=== PATIENT | male | born 1950 | race Caucasian/White ===

== ENCOUNTER 2017-07-26 10:58 | Emergency (ER) | payer BC ==
--- NOTE | 2017-07-26 12:21 | ED ---
Lower Extremity - HPI Summary HPI Summary: Pt here w/ Rt LE pain and weakness x 1.5 weeks. Pain along lateral aspect of Rt thigh and wraps around to calf. Drove down to [facility] Saturday and did a lot of walking - this helped leg pain however the following day when he was putting on his shoes, he noticed he couldn't do this well as he had weakness with dorsiflexion. Also reports a sensation of feeling like he has "cotton wool shoved in his shoe", reduced sensation over 3/4/5 toes. Has had pain at night trying to get comfortable in this area so went to see PCP today who sent him here for MRI of lumbar spine (she tried to order outpt but hit too many roadblocks). Admits to h/o chronic intermittent back pain which typically only acts up when he sits for long periods - otherwise, no issues with back pain. Denies previous injury or dx of back issues. Denies saddle paresthesia, change in bowel/bladder habits. Denies fever, chills, N/V/D, chest pain, SOB, ab pain, pelvic pain, skin changes. He has not been tested for diabetes that he's aware but has no sx. He did lose about 30lbs in the past couple of years intentionally with healthier lifestyle. 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 - History of Current Complaint Chief Complaint: EDExtremityLower Stated Complaint: LEG PAIN Time Seen by Provider: 07/26/17 11:32 Hx Obtained From: Patient Pain Intensity: 7 - Allergies/Home Medications Allergies/Adverse Reactions: Allergies Allergy/AdvReac Type Severity Reaction Status Date / Time No Known Allergies Allergy Verified 10/04/15 13:03 Home Medications: Home Medications Albuterol HFA INHALER* [Ventolin HFA Inhaler*] 2 puff INH Q4H PRN 07/26/17 [ History Confirmed 07/26/17] Loratadine & Pseudoephedrine [Claritin-D 12 Hour] 1 tab PO DAILY 07/26/17 [ History Confirmed 07/26/17] Nutritional Supplements [Glucosamine Complex] 2 tab PO DAILY 07/26/17 [History Confirmed 07/26/17] PMH/Surg Hx/FS Hx/Imm Hx Previously Healthy: Yes Endocrine/Hematology History: Denies: Hx Anticoagulant Therapy, Hx Blood Disorders, Hx Thyroid Disease, Hx Anemia, Hx Unexplained Bleeding, Autoimmune Disease Musculoskeletal History: Reports: Hx Back Problems - intermittent low back pain - no meds or specialist Sensory History: Reports: Hx Contacts or Glasses Opthamlomology History: Reports: Hx Contacts or Glasses Neurological History: Denies: Hx CVA, Hx Dementia, Hx Headaches, Hx Migraine, Hx Nerve Disease, Hx Peripheral Neuropathy, Hx Seizures, Hx Spinal Cord Injury - Immunization History Date of Tetanus Vaccine: unknown Date of Influenza Vaccine: 06/2017 Immunizations Up to Date: Yes Infectious Disease History: No Infectious Disease History: Denies: Traveled Outside the [place] in Last 30 Days - Family History Known Family History: Positive: None - Social History Occupation: Retired Alcohol Use: Rare Hx Substance Use: No Substance Use Type: Reports: None Hx Tobacco Use: No Smoking Status (MU): Never Smoked Tobacco Review of Systems Constitutional: Negative Negative: Fever, Chills, Fatigue Eyes: Negative ENT: Negative Cardiovascular: Negative Negative: Chest Pain Respiratory: Negative Negative: Shortness Of Breath Gastrointestinal: Negative Negative: Abdominal Pain, Vomiting, Diarrhea, Nausea Genitourinary: Negative Negative: dysuria, frequency, flank pain, incontinence, urgency Positive: Decreased ROM Skin: Negative Positive: Weakness, Paresthesia Psychological: Normal All Other Systems Reviewed And Are Negative: Yes Physical Exam Triage Information Reviewed: Yes Vital Signs On Initial Exam: Initial Vitals Temp Pulse Resp BP Pulse Ox 98.5 F 72 18 147/96 99 07/26/17 11:02 07/26/17 11:02 07/26/17 11:02 07/26/17 11:02 07/26/17 11:02 Vital Signs Reviewed: Yes Appearance: Positive: Well-Appearing, No Pain Distress, Well-Nourished Skin: Positive: Warm, Dry - no erythema, no ecchymosis, no lesions over Rt LE Head/Face: Positive: Normal Head/Face Inspection Eyes: Positive: EOMI ENT: Positive: Hearing grossly normal Respiratory/Lung Sounds: Positive: Breath Sounds Present Cardiovascular: Positive: Pulses are Symmetrical in both Upper and Lower Extremities. Negative: Leg Edema Left, Leg Edema Right Abdomen Description: Positive: Nontender, Soft Bowel Sounds: Positive: Present Musculoskeletal: Negative: Strength/ROM Intact - Rt dorsiflexion is 3/5; Lt dorsiflexion 5/5 - all other movements of LE's are equal B/L; limited active ROM w/ toes and dorsiflexion on Rt LE, Pain @ - spinous pp and paraspinal mm are NTTP Neurological: Positive: Normal, Alert, Oriented to Person Place, Time, CN Intact II-III, Reflexes Intact - DTR of patellar tendon is 2+ equal B/L (NOTE: achilles reflex blunted B/L - equal). Negative: Sensory/Motor Intact - decreased sensation over Rt 3/4/5 phalanges on Rt foot; negative saddleparesthesia Psychiatric: Positive: Normal - José Coma Scale Coma Scale Total: 15 Diagnostics - Vital Signs Vital Signs Temp Pulse Resp BP Pulse Ox 07/26/17 11:02 98.5 F 72 18 147/96 99 - Laboratory Result Diagrams: 07/26/17 13:40 07/26/17 13:40 Lab Statement: Any lab studies that have been ordered have been reviewed, and results considered in the medical decision making process. Lower Extremity Course/Dx - Course Course Of Treatment: Pt presents w/ 1.5 week h/o lateral Right thigh and medial Rt calf pain which progressed to weakness of Right ankle w/ dorsiflexion and numbness of toes 2-3 days ago. Saw his PCP today who attempted to order an MRI of his lumbar spine but was unsuccessful. She sent him here for MRI. Discussed w/ Dr. Argueta - although unfortunate this could not be done outpt, lumbar MRI is most appropriate plan of action. If appropriate pending results, will order steroids to reduce sx and consult with neurosurg. MRI: Moderate to large right posterior lateral disc extrusion at L4-5 impinging upon. the right descending L5 nerve root in the lateral recess. DDD L2-S1. Facet arthropathy noted. Spoke w/ Dr. Anna who agreed w/ prednisone trial but will also see pt in ED and f/u w/ pt on Saturday - most likely needs surgical intervention. Danger s/ sx discussed w/ pt for earlier return to ED. Pt agrees w/ plan. - Diagnoses Provider Diagnoses: Lumbar radiculopathy Discharge - Discharge Plan Condition: Stable Disposition: HOME Prescriptions: predniSONE TAB* [Deltasone TAB*] 60 mg PO DAILY #15 tab Patient Education Materials: Lumbar Radiculopathy (ED) Referrals: Kelsi Jacobs MD [Primary Care Provider] - Additional Instructions: You appear to have a disc protruding and impinging a nerve innervating areas of the Right lower extremity. You have been prescribed a course of prednisone (a steroid) in an effort to reduce your swelling, pain and eventually weakness. It is important that you follow-up with Dr. Anna Saturday per discussion while here today. Contact information included here. It is also advised that you avoid movements that may exacerbate your pain (bending, rotating, etc). It is also advised that you avoid driving until cleared by Dr. Anna. In addition to your steroid, you may try non-steroidal anti-inflammatory such as ibuprofen 600mg every 6 hours with food. *If you develop worsening of weakness, pain, additional areas of numbness, change in bowel/bladder habits, return to ED
[2017-07-26 13:54] LABS: Hematocrit 43 % (42-52); Hemoglobin 14.8 g/dl (14.0-18.0); Mean Corpuscular HGB Conc 35 g/dl (31-36); Mean Corpuscular Hemoglobin 32 pg (27-31); Mean Corpuscular Volume 93 fL (80-94); Mean Platelet Volume 8 um3 (7.4-10.4); Red Blood Count 4.64 10^6/ul (4.0-5.4); Red Cell Distribution Width 14 % (10.5-15); White Blood Count 6.9 10^3/ul (3.5-10.8)
[2017-07-26 14:09] LABS: ALT 32 U/L (7-52); AST 34 U/L (13-39); Albumin 4.1 g/dL (3.2-5.2); Alkaline Phosphatase 74 U/L (34-104); Anion Gap 5 mmol/L (2-11); BUN/Creatinine Ratio 24.1 (8-20); Blood Urea Nitrogen 20 mg/dL (6-24); C Reactive Protein < 1.00 mg/L (< 5.00); CO2 Carbon Dioxide 27 mmol/L (22-32); Calcium 9.8 mg/dL (8.6-10.3); Chloride 105 mmol/L (101-111); EGFR African American 119.6 (>60); Globulin 2.8 g/dL (2-4); Glucose 101 mg/dL (70-100); Sodium 137 mmol/L (133-145); Total Protein 6.9 g/dL (6.4-8.9)
--- NOTE | 2017-07-26 15:15 | RAD ---
Indication: Lumbar radiculopathy. Image sequences: Sagittal T1, T2, STIR, axial T1 and T2-weighted images of the lumbar spine were obtained. The vertebral bodies appear normal in height. Normal bone marrow signal is noted. The vertebral bodies appear normal in height and alignment. Normal bone marrow signal is noted. At L2-L3 there is degenerative disc disease. No central or foraminal stenosis is noted. At L3-L4 spondylitic ridge flattens the thecal sac. No central or foraminal stenosis is noted. Mild facet arthropathy is noted. At L4-L5 spondylitic ridge with right paracentral disc extrusion indents the right descending L5 nerve root. No foraminal stenosis is noted. At L5-S1 degenerative disc disease is noted. IMPRESSION: Moderate to large right posterior lateral disc extrusion at L4-L5 impinging upon the right descending L5 nerve root in the lateral recess. Degenerative disc disease at L2-L3, L3-L4 and L5-S1. Facet arthropathy is noted.
[2017-07-26] MEDS ORDERED: predniSONE TAB* 20 MG PO ONE (16:45)
[2017-07-26 16:55] VITALS: BP 147/88
--- NOTE | 2017-07-26 21:22 | PN ---
Progress Note - Progress Note Date of Service: 07/26/17 Note: Patient seen and examined. Full consultation was dictated N: [id number]. Yuliet Burns MD
--- NOTE | 2017-07-27 05:42 | CONS ---
CONSULTATION REPORT: DATE OF CONSULT: 07/26/2017 HISTORY OF PRESENT ILLNESS: The patient is a very pleasant 66-year-old gentleman with a history of asthma, who was sent to the emergency room from the office of his primary physician. The patient complains of right foot drop for the 2 weeks. Requested to see the patient by the ED physician because of MRI findings consistent with right L4-L5 herniated nucleus pulposus. The patient reported that his symptoms started approximately 1- 1/2 weeks ago. He had experienced buckling of the right lower extremity with right lower extremity weakness in the dorsiflexion and decreased sensation in the right foot. The patient had difficulty putting on his right shoe. He reported that he has also difficulty with walking. He now reports that he has back pain radiating to the right lower extremity in the outer thigh area and knee and right foot. His main complaint is right lower extremity pain. He reports that he does have weakness on dorsiflexion of his right foot and he also feels decreased sensation in the right lower extremity. He denies urinary and GI incontinence. 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 PAST MEDICAL HISTORY: Asthma. PAST SURGICAL HISTORY: Negative. MEDICATIONS: The patient is on medications includin. Albuterol. 2. Loratadine. ALLERGIES: No known drug allergies. FAMILY HISTORY: Noncontributory. SOCIAL HISTORY: Tobacco negative. Alcohol is negative. Recreational drug use negative. PHYSICAL EXAM: The patient is not in acute distress. He ambulates slowly favoring his right lower extremity. He does have some difficulty standing on his right toes and cannot stand on the right heel. He is awake, alert, and oriented x3. His pupils are equal and reactive. Cranial nerves II through XII are grossly intact. Motor is grossly intact (4-5/5) in all extremities with the exception of the right foot dorsiflexion 3-4-/5 and EHL which is 3/5. The patient also has some mild weakness on the plantar flexion of his right foot which is 4-/5. Sensation is decreased on the right lower extremity at the L4 and L5 distribution.. He has no tenderness to palpation of the cervical, thoracic, or lumbar spine. He has full range of motion of the cervical spine. Deep tendon reflexes are +1 bilaterally except Achilles which is trace bilaterally. No clonus. No Babinski. Tolentino's negative. Straight leg raising test positive on the right at 30 degrees. MRI of the lumbar spine: HNP at the right L4-5 level with caudal extension. ASSESSMENT: The patient is a pleasant 66-year-old gentleman with a history of asthma with complaints of back pain radiating to right lower extremity, and weakness of the right lower extremity with right foot drop and MRI findings consistent with right L4-5 HNP. Plan: Based on his presentation and MRI findings, patient may benefit from a surgical intervention in the form of right L4-L5 lumbar diskectomy. Discussed in extend with patient non surgical and surgical options as well as expectations , limitations and possible complications of the procedure with complications including but not limited to bleeding, infection, risk of injury to adjacent structures, coma, paralysis, , anesthesia risks. Patient understands and would like to consider surgical intervention. At this point he would like to go home and return on Saturday to our office in order to schedule surgery. Full instructions were given to the patient. He understands that he should avoid strenuous activities and return to the ED if his condition worsens or if he develops signs or symptoms of cauda equina. Thank you for allowing us to participate in the care of this patient. Please do not hesitate to contact our office in case you have any further questions or concerns regarding the care of this patient. Yuliet Burns MD [id number]/[facility] #: [id number] MTDFito
== END 2017-07-26 16:51 | disposition home or self-care (01) ==
LOC: ED 10:58
DX: M54.16 Radiculopathy, lumbar region (principal); M51.37 Other intervertebral disc degeneration, lumbosacral region; J45.909 Unspecified asthma, uncomplicated
CPT/HCPCS: 36415; 72148; 80053; 83605; 85025; 85610; 86140; J7512

== ENCOUNTER 2017-08-01 05:53 | Observation (INO) | payer BC, MEDICARE ==
[~2017-08-01 05:53] MED LIST: Buffered Lidocaine 0.9% SYRIN* 5 ML/SYR SYRINGE INTRADERM ONE
[2017-08-01] MEDS ORDERED: Famotidine IV* 10 MG/ML 2 ML (20 mg) IV ONE (06:00)
[2017-08-01] MEDS ORDERED: Famotidine IV* 10 MG/ML 2 ML (20 mg) ONE (06:30)
[2017-08-01] MEDS ORDERED: ceFAZolin 2 GM PREMIX (*) 2 GM/50 ML BAG IVPB ONE (06:48)
[2017-08-01] MEDS ORDERED: Thrombin 5,000 UNITS* 1 APPLIC KIT - topical use - TOPICAL ONE (07:31)
[2017-08-01] MEDS ORDERED: Lidocaine 1% MPF wEPI 200,000* 30 ML SDV ONE (07:31)
[2017-08-01] MEDS ORDERED: Bacitracin IV* 50,000 UNITS INJ ONE (07:31)
[2017-08-01] MEDS ORDERED: Midazolam* 1 MG/ML 2 ML VIAL (2 MG) ONE (07:40)
[2017-08-01] MEDS ORDERED: fentaNYL* 50 MCG/ML 2 ML VIAL (100 MCG VIAL) ONE ×3 (07:40→08:44)
[2017-08-01] MEDS ORDERED: Rocuronium* 10 MG/ML VIAL ONE (07:41)
[2017-08-01] MEDS ORDERED: Lidocaine 2% PF * 5 ML VIAL ONE (07:44)
[2017-08-01] MEDS ORDERED: Propofol* 10 MG/ML 20 ML BTL IV PUSH ONE (07:44)
[2017-08-01] MEDS ORDERED: Ondansetron INJ* 2 MG/ML VIAL ONE (07:44)
[2017-08-01] MEDS ORDERED: Ketorolac INJ* 30 MG/ML 1 ML VIAL ONE (07:44)
[2017-08-01] MEDS ORDERED: Succinylcholine* 20 MG/ML 10 ML VIAL ONE (07:44)
[2017-08-01] MEDS ORDERED: DiMENhydriNATE IV* 50 MG/ML VIAL ONE (07:44)
[2017-08-01] MEDS ORDERED: Dexamethasone IV* 4 MG/ML 1 ML (4 MG) ONE (07:44)
--- NOTE | 2017-08-01 08:01 | PN ---
Progress Note - Progress Note Date of Service: 08/01/17 Note: No changes since seen in the hospital and in office. 66 yom right foot drop, MRI reveals right L4-5 HNP Plan: Patient was offered a right L4-5 lumbar discectomy. Risks and benefits were discussed again with patient and a friend of his, who is a colleague of his. Risks include, but not limited to bleeding, infection, risk of injury to adjacent structures, coma, paralysis, , need for additional procedures, anesthesia risks, spinal fluid leak, instability, stroke, blindness. Patient understands and wishes to proceed with surgical intervention. Informed consent was obtained. Patient and his friend understand that his condition may not improve and in fact may get worse and that he may need additional procedures in the future. Also they understand that operative plan may be modified according to intraoperative findings and conditions. Yuliet Burns MD
[2017-08-01] MEDS ORDERED: EPHEDrine (Pressors)* 50 MG/ML VIAL ONE (08:42)
[2017-08-01] MEDS ORDERED: Glycopyrrolate IV* 0.2 MG/ML 1 ML VIAL ONE (08:42)
[2017-08-01] MEDS ORDERED: oxyCODONE TAB* 5 MG TAB PO PRN (09:44)
[2017-08-01] MEDS ORDERED: DiMENhydriNATE IV* 50 MG/ML VIAL IV PUSH PRN (09:44)
[2017-08-01] MEDS ORDERED: HYDROmorphone INJ* 1 MG/ML CARPUJECT SYRINGE IV PRN (09:44)
[2017-08-01] MEDS ORDERED: Acetaminophen TAB* 325 MG PO PRN ×2 (09:44→10:28)
[2017-08-01] MEDS ORDERED: Ondansetron INJ* 2 MG/ML VIAL IV PRN (10:28)
[2017-08-01] MEDS ORDERED: HYDROcodone/ACETAMIN 5-325 MG* 1 TAB PO PRN ×2 (10:28→10:36)
[2017-08-01] MEDS ORDERED: Albuterol HFA INHALER* 8 gm MDI INH PRN (10:34)
--- NOTE | 2017-08-01 11:11 | RAD ---
INDICATION: L4-L5 discectomy COMPARISONS: MRI dated April 26, 2017 TECHNIQUE: Fluoroscopy was provided for a surgical procedure. Total fluoroscopy time is: 15.3 seconds FINDINGS: Spot images demonstrate a metallic probe in the L4-L5 intervertebral disc space, counting from L5 as the last lumbar type vertebral body. IMPRESSION: FLUOROSCOPY WAS PROVIDED FOR A SURGICAL PROCEDURE CPT II Codes: 6045F
[2017-08-01 12:07] LABS: Hematocrit 46 % (42-52); Hemoglobin 15.4 g/dl (14.0-18.0); Mean Corpuscular HGB Conc 34 g/dl (31-36); Mean Corpuscular Hemoglobin 32 pg (27-31); Mean Corpuscular Volume 93 fL (80-94); Mean Platelet Volume 8 um3 (7.4-10.4); Red Cell Distribution Width 14 % (10.5-15); White Blood Count 7.3 10^3/ul (3.5-10.8)
[2017-08-01 12:13] LABS: Add Diff/Slide Review? Slide Review Added; Comments Flag Yes
[2017-08-01 12:22] LABS: BUN/Creatinine Ratio 19.8 (8-20); Calcium 9.8 mg/dL (8.6-10.3); EGFR African American 90.2 (>60); EGFR Non-African American 70.1 (>60); Potassium 4.2 mmol/L (3.5-5.0)
--- NOTE | 2017-08-01 15:16 | CONS ---
DICTATION ENDS ABRUPTLY - FULLY REDICTATED CONSULTATION REPORT: DATE OF CONSULT: 08/01/17 He has a history of asthma. He has a recent history of an L4-L5 herniated disk with right-sided back pain and right foot weakness and he also had some difficulty walking. He was scheduled today for a right L4-L5 diskectomy DICTATION ENDS ABRUPTLY MARGY NADIYA, DAIRY SCIENCE TEACHER [id number]/[facility] #: [id number] ADINA
--- NOTE | 2017-08-01 19:43 | CONS ---
[facility] MEDICINE CONSULTATION REPORT: DATE OF CONSULT: 08/01/17 ATTENDING PHYSICIAN: Dr. Burns. CONSULTING PHYSICIAN: Dr. Quiroga (dictation provided by Margy Haley NP). REASON FOR CONSULT: Intraoperative and postoperative bradycardia. HISTORY OF PRESENT ILLNESS: Mr. Soni is a 66-year-old male with a past medical history of asthma and right-sided back pain, right leg weakness. He was admitted for a scheduled right L4-L5 discectomy today. We were called to consult due to an episode of bradycardia during and post surgery. Rhythm strips showed sinus bradycardia with the rate in the 40s. Upon interview, the patient denies any chest pain, shortness of breath. Denies dizziness, nausea, vomiting. He states that he has episodes for several years at night where he can feel his heartbeat, primary care doctor was aware. no work up was ever completed. He denies any past medical history of coronary artery disease. PAST MEDICAL HISTORY: 1. Asthma. 2. Right L4-L5 disk herniation. PAST SURGICAL HISTORY: Hernia repair in January of 2017. MEDICATIONS: 1. Multivitamin. 2. Albuterol inhaler, which he uses p.r.n. and reports that he rarely uses this. ALLERGIES: No known drug allergies. FAMILY HISTORY: Father had a history of prostate cancer. SOCIAL HISTORY: The patient does not smoke. Reports rare use of alcohol and denies any recreational drug use. Surrogate decision makes is [place] patient's son. REVIEW OF SYSTEMS: General: Denies fever, chills, or unintended weight loss. Cardiac: No chest pain, no edema. Respiratory: Denies shortness of breath, cough, or congestion. GI: Denies nausea, vomiting, diarrhea, or abdominal pain. Denies any hematuria or dysuria. Neuro: No focal weakness or sensory loss other than what was stated in the HPI. Eyes: No visual complaints. ENT: No dysphagia. Musculoskeletal: No complaints. Skin: No rashes or lesions. PHYSICAL EXAM: Vital Signs: Temperature 97.0, blood pressure was 150/85, heart rate is 76 and sinus rhythm, respirations are 14 and regular, O2 saturation is 100% on room air. General: Mr. Soni is lying on the stretcher. He appears to be in no acute distress. Neuro: He is alert and oriented x3. He is able to move all extremities. Extraocular movements are intact. Heart: S1, S2, regular rate and rhythm. There are no murmurs, rubs or gallops. Lungs are clear to auscultation bilaterally with no accessory muscle use. Abdomen is soft and nontender. Bowel sounds are positive x4. Extremities are without cyanosis or edema. Pedal pulses are +2 bilaterally. The skin is intact. LABORATORY DATA: Preoperatively, WBC 7.3, RBC 4.90, Hgb 15.4, hematocrit 46, platelet count is 187. Sodium is 139, potassium is 4.2, chloride 104, bicarb is 31, BUN is 21, creatinine 1.06, glucose was 116, calcium was 9.8, and mag was 2.0. Troponin was 0.00. IMPRESSION AND PLAN: Mr. Soni is a 66-year-old male with no significant past medical history, who presented to the hospital for a planned right L4-L5 diskectomy. In the immediate postoperative period, he has no complaints. He did have a few episodes of bradycardia during the surgery and in the postoperative period. Our recommendations are as follows: 1. Status post right L4-L5 discectomy: Management per Neurosurgery. 2. Bradycardia: We will monitor on telemetry for 8 hours if there are no further bradycardic events, the patient will be taken off the monitor. Cardiology consult was ordered by attending physician. If there are no further episodes of bradycardia we will sign off on this case. 3. Asthma: We will continue his albuterol inhaler as needed for shortness of breath. 4. DVT prophylaxis: Per Neurosurgery. 5. Activity: Per Neurosurgery. 6. FEN: Can be placed on a regular diet. 7. Code status: The patient is a full code. TIME SPENT: Approximately 45 minutes was spent in the consultation of this patient; more than half the time was spent with the patient at the bedside reviewing the patient's history thus far during hospitalization, performing physical exam, and reviewing my plan of care. This case has been reviewed with Dr. Quiroga my attending and she is in agreement with my plan. MARGY HALEY, ENERGY EFFICIENCY FINANCE MANAGER [id number]/[facility] #: [id number] [facility] CENTERFito
--- NOTE | 2017-08-01 23:39 | CONS ---
CC: Dr. Kelsi Jacobs; Dr. Lena Dean; Dr. Burns * CARDIOLOGY CONSULTATION: DATE OF CONSULT: 08/01/17 NEUROSURGEON: Dr. Burns. REASON FOR CONSULT: Bradycardia perioperatively. CHIEF COMPLAINT: The patient's chief complaint was back pain. HISTORY OF PRESENT ILLNESS: Mr. Soni is a 66-year-old gentleman admitted for elective L4-5 diske[address] today [address] Dr. Burns. He underwent anesthesia, was in the prone position and sedated awaiting initiation of surgery and his heart rate dropped progressively, OR notes reviewed. He was hemodynamically otherwise stable and they went ahead with the surgery, which was unremarkable. Then, postoperatively, with monitoring, he had what Dr. Dean describes as some pauses and hence the Cardiology consult was called. At the peak time, I saw the patient. He was postoperative on the floor and overall feeling well. He says he has never had a syncopal or near syncopal event. He does state that he has had many many years of intermittent palpitations typically at rest. These palpitations are not associated with other symptoms such as lightheadedness, chest discomfort, nausea, feeling poorly in any way. PAST MEDICAL HISTORY: 1. The patient has a past medical history of L4-5 disk herniation, status post surgery today. 2. Asthma. PAST SURGICAL HISTORY: Hernia repair in January of 2017, the patient denied any complications with this procedure. MEDICATIONS: Outpatient medications included: 1. Albuterol inhaler. 2. MultiVites. ALLERGIES: No known drug allergies. FAMILY HISTORY: Significant had a pacemaker. Both parents lived until the age of 92. 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 He is physically quite active on a regular basis until his back issues. No history of recreational drug use, occasionally a glass of wine socially. He does not smoke. REVIEW OF SYSTEMS: A 14-point review of systems was performed. No recent fevers, chills, sweats. No recent travel. No chest pain, pressure, heaviness. No orthopnea. No PND. Does not use eye drops. He has never been on weight lowering agents that he is aware of. Denies use of jlxj-zcb-jptauej medication. I could not elicit a history of problems of vagally mediated or increased vagal tone such as trouble urinating, , constipation, and all other 14-point review of systems was unremarkable other than that mentioned in history of present illness with palpitations for many years. PHYSICAL EXAM: The patient is 5 feet 8 inches, weighs 184 pounds with BMI of 28. Vital signs at the time I saw him, blood pressure 144/93, pulse was 88, respiratory rate 16, oxygen saturation on room air 98%, and he is afebrile. General Appearance: Somewhat older gentleman, seated, in no acute distress. Psychologically, cooperative, voiced that he would rather be home. Neurologically, awake, alert, oriented to person, place, and time. Cranial nerves II through XII intact, grossly normal sensory and motor function in the upper and lower extremities. Gait not evaluated but moved well in the bed. HEENT: Pupils equal and round. Mucous membranes moist. Neck without appreciable increase in JVP and no thyromegaly appreciated. Breath sounds were clear in all soto. No wheezes, rales, or rhonchi. Coronary: S1, S2, regular without murmurs or rubs. Abdomen: Active bowel sounds, nontender. Lower extremities were symmetrical and were free of edema and warm. DIAGNOSTIC STUDIES/LAB DATA: Chart reviewed and at 8:33 this morning, the patient went from normal sinus rhythm 75 beats a minute abruptly to an ectopic or junctional bradycardia in the 40s and alternated these rhythms. In the PACU , he showed sinus rhythm at 80 beats a minute with occasional PACs and a compensatory pause following his PACs, sometimes this was more pronounced than others. Lab strips from telemetry around 1 o'clock showed sinus rhythm with sinus arrhythmia and with varying pulses from sinus rhythm, 80 beats a minute, to sinus bradycardia versus ectopic bradycardia in the 40s and back to sinus rhythm, 80 to 85 beats a minute. There were multiple similar episodes. The patient's 12-lead ECG done at 11:18 today postoperatively shows normal sinus rhythm, 70 beats a minute, QRS axis -15 with normal AV and IV conduction times. ST segments are unremarkable, somewhat prominent R wave. White count 7.3, hemoglobin 15.4, platelets 187. Sodium 139, potassium 4.2, chloride 104, bicarb 31, glucose 116, BUN 4, creatinine 1.06. Troponin 0.00. Magnesium 2.0. IMPRESSION AND PLAN: In summary, Vasile Soni is a 66-year-old gentleman, who had intermittent bradycardia intraoperatively and postoperatively. I think he has a combination of some sick sinus syndrome and blocked premature atrial contractions as the etiology as he has never had any syncopal or near-syncopal events and a long- standing history of palpitations that has been unchanged. I think this can be pursued as an outpatient. He very much appeared to want to be discharged. I communicated to the patient that I did not feel there was an indication for a pacemaker at this point, but this could be an early sick sinus syndrome and that I would recommend some outpatient monitoring, perhaps an event monitor. I did not appreciate that patient had a history to suggest sleep apnea but this can sometimes lead to some sinus arrhythmia as can dehydration but there is no evidence that patient was dehydrated intraoperatively or postoperatively. Thank you for allowing me to assist in this nice gentleman's care. [id number]/[facility] #: [id number] ADINA
--- NOTE | 2017-08-02 07:23 | PN ---
Progress Note - Progress Note Date of Service: 08/02/17 SOAP: Subjective: []No events ON. Tolerates po well. Ambulates, Voids. No complains of pain. Did not take pain medications. RLE weakness and numbness improved compare with preop. Objective: [] VVS Afebrile Wound s,c,d AAOx3 KRISTIE, Face symmetric. HOWELL 4-5/5 Rt foot DF, EHL 3-4-/5 Sensory grossly intact to light touch, except rt foot, which is improved compared to preop. Assessment: []66 yom POD#1 Rt L4-5 LMD Plan: []Appreciate IM, Cardiology consultation. Patient is doing very well, wants to go home. Encourage ambulation. DC home if ok with IM, Cardiology. Yuliet Burns MD
[2017-08-02 08:30] VITALS: BP 117/67
--- NOTE | 2017-08-02 10:17 | OP ---
DATE OF OPERATION: 08/01/17 - ROOM #341 DATE OF : 52 SURGEON: Doreen Burns MD INSIDE TECHNICAL SALES REPRESENTATIVE: AMRITA Rehman ANESTHESIOLOGIST: Lena Dean MD ANESTHESIA: General. PRE-OP DIAGNOSIS: Right L4-5 herniated nucleus pulposus. POST-OP DIAGNOSIS: Right L4-5 herniated nucleus pulposus. OPERATIVE PROCEDURE: The patient underwent right L4-5 diskectomy. ESTIMATED BLOOD LOSS: 50 cc. COMPLICATIONS: None. SUMMARY: The patient is a very pleasant 66-year-old gentleman with complaints of back pain radiating to the right lower extremity with weakness of right lower extremity for approximately 2 weeks and right footdrop with MRI findings consistent with a right L4-5 herniated nucleus pulposus. The patient was offered the option of surgical intervention in the form of right L4-5 diskectomy. After all nonsurgical and surgical options, expectations, limitations, and possible complications of the procedure had been explained in detail to the patient and friend of his with complications to include, but not limited to bleeding, infection, risk of damage to adjacent structures, paralysis , , need for additional procedures, anesthesia risks, stroke, blindness, cancer, instability, spinal fluid leak, need for additional procedures, the patient was agreeable to proceed with surgery. Informed consent was obtained. The patient and his friend understood that his condition may not improve and in fact may get worse after the surgery and that he may need some additional procedure in the future. Furthermore, he understood that operative plan may be modified according to intraoperative findings and conditions. DESCRIPTION OF PROCEDURE: The patient was brought to the operating room and was placed under general anesthesia by the anesthesia team. He was carefully positioned prone on the Peterson frame on the Gonsalo table and all bony prominences were meticulously padded. His skin was prepped and draped in the standard fashion. After appropriate surgical pause and patient identification, the appropriate level was identified with intraoperative fluoroscopic imaging. A small incision to the right of the L4-5 disk space was marked on the skin and the skin was infiltrated with local anesthetic. A #10 surgical blade was used to incise the skin and the incision was carried down with Bovie cautery. Dorsal fascia was divided and over a series of tubular dilators, the tubular METRx rectractor system was introduced. Intraoperative fluoroscopic images confirmed optimal placement of the retractor. Operative microscope was brought into the field and high speed drill was used to perform a small laminotomy at the right L4 jen-lamina, extended slightly towards the midline. The laminotomy was completed with the use of Kerrison punches and after removal of the ligamentum flavum, dura was slightly identified. The L5 nerve root was identified as well as the L4-5 disk space and after gentle retraction of the nerve root, a complete fragmentectomy was performed at the right L4-5 level. Multiple disk fragments were identified and were carefully removed. Specimen was sent for pathology examination. Then, attention was brought to perform a diskectomy at that level. with a #15 surgical blade, then using the pituitary rongeur to remove the loose disk fragments from the disk space. Intraoperative fluoroscopic imaging confirmed the appropriate surgical level and after confirmation of meticulous hemostasis and copious irrigation, the dura was found to be free of any pressure phenomenon. Laminotomy was performed also at the same level with Kerrison punches. At the end of the procedure, the dura and the nerve root was found to be free of any pressure phenomena. Then, the tubular retractor was gently removed, meticulous hemostasis was confirmed, and after copious irrigation, the would closed by layers with 0 interrupted Vicryl sutures to reapproximate the dorsal fascia and 2-0 interrupted Vicryl sutures to reapproximate the subcutaneous tissue. The skin was approximated with Steri- Strips and covered with sterile dressings. At the end of the procedure, all counts were reported to be correct. The patient remained hemodynamically stable throughout the case. He was then carefully returned supine, was extubated and was transferred to Recovery in excellent condition. [id number]/[facility] #: [id number] [facility]ENTER[facility]
--- NOTE | 2017-08-03 01:10 | DS ---
DISCHARGE SUMMARY: DATE OF ADMISSION: 08/01/17 DATE OF DISCHARGE: 08/02/17 ATTENDING PHYSICIAN: Doreen Burns MD * (DICTATED BY AMRITA SHOEMAKER) DISCHARGE DIAGNOSES: 1. Herniated nucleus pulposus, L4-5 on the right. 2. Bradycardia. 3. Asthma. SPECIAL PROCEDURE: Lumbar diskectomy, L4-5 on the right. HOSPITAL COURSE: This 66-year-old male was seen in the office after a visit at the [facility] Emergency Department complaining of right lower extremity pain. MRI of the lumbar spine was consistent with physical exam findings and showed a herniated disk at L4-5 on the right. After being seen in the office on and discussion of treatment options, the patient wished to proceed with elective surgery. On the day of admission, he was taken to surgery where under general anesthesia, a lumbar diskectomy at L4-5 on the right operation was carried out. He experienced episodes of bradycardia and arrhythmia intraoperatively and postoperatively, a Cardiology consult was obtained. Postoperatively, he was feeling well and the right lower extremity symptoms have improved. He was eating, drinking and voiding without difficulty. He was ambulating independently. The Cardiology consult by Dr. Fernandez indicated that he likely has a combination of sick sinus syndrome and premature atrial contractions. She recommended that this be followed up and worked up as an outpatient. On the first postoperative day, he is discharged home to the care of his family. DISCHARGE INSTRUCTIONS: Activity level and wound care were discussed with the patient. FOLLOWUP: He will be seen in office next week for a followup. He will also follow up with Dr. Fernandez for his recently diagnosed cardiac condition. DISCHARGE MEDICATION: [place] 5/325 mg 1 to 2 tabs by mouth every 4 to 6 hours as needed for pain. AMRITA SHOEMAKER [id number]/[facility] #: [id number] [facility]ITAL[facility]ito
== END 2017-08-02 10:30 | disposition home or self-care (01) ==
LOC: OR 05:53 → SSU 12:30
PROVIDERS: ADMIT Neurological Surgery; ATTEND Neurological Surgery
PROC: 01NB0ZZ Release Lumbar Nerve, Open Approach (ICD-10-PCS; 2017-08-01)
PROC: 0SB20ZZ Excision of Lumbar Vertebral Disc, Open Approach (ICD-10-PCS; principal; 2017-08-01 07:45)
DX: M51.16 Intervertebral disc disorders with radiculopathy, lumbar region (principal); J45.909 Unspecified asthma, uncomplicated; R00.1 Bradycardia, unspecified
CPT/HCPCS: 36415; 76000; 80048; 83735; 84484; 85025; 93005; A9270-GY; G0378; J0330; J0690; J1100; J1240; J1885; J2001; J2250; J2405; J2704; J3010

== ENCOUNTER 2019-03-20 16:24 | Emergency (ER) | payer MEDICARE ==
--- OUTSIDE RECORDS SUMMARY | 2019-03-20 16:35 | XMS REPORT | Continuity of Care Document ---
:1950 External Reference #:[id number] Author Name Inocencia Clay Care Team Providers Name Role Phone Kelsi Jacobs MD Primary Care Physician Unavailable Payers Date Identification Numbers Payment Provider Subscriber Policy Number: [id number] Medicare Blue Ppo Vasile Soni PayID: [id number] [address] [address] [place] [address] Problems Active Problems Provider Date Displacement of lumbar intervertebral disc Doreen Burns MD Onset: without myelopathy Family History Date Family Member(s) Observation Comments Father due to Pneumonia () - age 93 Mother due to Heart Disease () - heart failure age 93 Siblings 1 Social History Type Date Description Comments Sex Unknown 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 ETOH Use Rarely consumes alcohol Tobacco Use Start: Unknown Patient has never smoked Smoking Status Reviewed: 03/20/19 Patient has never smoked Allergies, Adverse Reactions, Alerts Description No Known Drug Allergies Medications Active Medications SIG Qnty Indications Ordering Provider Date Albuterol Sulfate 1-2 puffs every 4 Unknown 2mg hours as needed Tablets sob Aleve 1-2 by mouth Unknown 220mg Capsules twice a day as needed Acetaminophen 2 tablets by Unknown 325mg Tablets mouth every 6 hours as needed for pain/fever Clobetasol Propionate prn Unknown 0.05% Ointment Flonase Sensimist 1 squirt each Unknown nostril once a 27.5mcg/Boyce day Suspension History Medications [place] take 1-2 tabs by 30tabs Doreen Burns, 08/02/2017 - 5-325mg mouth every 4-6 MD 09/17/2017 Tablets hours as needed for pain. Claritin-D 12 Hour once a day spring/0000 - /summer08/07/2017 5-120mg Tablets ER 12HR Vital Signs Date Vital Result Comment 03/20/2019 2:04pm Height 68 inches 5'8" Weight 190.00 lb Heart Rate 80 /min BP Systolic Sitting 144 mmHg BP Diastolic Sitting 82 mmHg BMI (Body Mass Index) 28.9 kg/m2 02/11/2019 10:02am Height 68 inches 5'8" Weight 190.00 lb BP Systolic Sitting 122 mmHg BP Diastolic Sitting 80 mmHg Pain Level 3 BMI (Body Mass Index) 28.9 kg/m2 11/10/2018 10:06am Height 68 inches 5'8" Weight 190.75 lb Heart Rate 54 /min BP Systolic Sitting 110 mmHg large adult cuff left arm BP Diastolic Sitting 82 mmHg large adult cuff left arm O2 % BldC Oximetry 97 % at rest on room air BMI (Body Mass Index) 29.0 kg/m2 09/19/2018 3:03pm Height 68 inches 5'8" Weight 180.00 lb BP Systolic Sitting 120 mmHg BP Diastolic Sitting 70 mmHg Pain Level 4 BMI (Body Mass Index) 27.4 kg/m2 07/08/2018 9:56am Height 68 inches 5'8" Weight 180.00 lb BP Systolic Sitting 140 mmHg BP Diastolic Sitting 70 mmHg Pain Level 2 BMI (Body Mass Index) 27.4 kg/m2 11/29/2017 8:50am Height 68 inches 5'8" Weight 180.00 lb BP Systolic Sitting 122 mmHg BP Diastolic Sitting 60 mmHg Pain Level 1 BMI (Body Mass Index) 27.4 kg/m2 10/01/2017 9:38am Height 68 inches 5'8" Weight 180.00 lb Heart Rate 82 /min BP Systolic Sitting 118 mmHg BP Diastolic Sitting 78 mmHg Pain Level 0 BMI (Body Mass Index) 27.4 kg/m2 09/17/2017 9:45am Height 68 inches 5'8" Weight 180.00 lb Heart Rate 91 /min BP Systolic Sitting 126 mmHg BP Diastolic Sitting 80 mmHg Pain Level 2 BMI (Body Mass Index) 27.4 kg/m2 09/10/2017 10:48am Height 68 inches 5'8" Weight 180.00 lb Heart Rate 77 /min BP Systolic Sitting 127 mmHg BP Diastolic Sitting 74 mmHg Pain Level 3 BMI (Body Mass Index) 27.4 kg/m2 08/07/2017 1:34pm Height 68 inches 5'8" Weight 180.00 lb Heart Rate 94 /min BP Systolic Sitting 124 mmHg BP Diastolic Sitting 74 mmHg Pain Level 3 BMI (Body Mass Index) 27.4 kg/m2 07/29/2017 12:24pm Height 68 inches 5'8" Weight 183.00 lb Heart Rate 78 /min BP Systolic Sitting 128 mmHg BP Diastolic Sitting 78 mmHg Pain Level 3 BMI (Body Mass Index) 27.8 kg/m2 Results Test Date Facility Test Result H/L Range Note CBC Auto Diff 08/01/2017 [facility] White Blood 7.3 10^3/uL N 3.5-10.[address] [place] [address] [phone] Red Blood Count 4.90 10^6/uL N 4.0-5.4 Hemoglobin 15.4 g/dL N 14.0-18.0 Hematocrit 46 % N 42-52 Mean Corpuscular Volume 93 fL N 80-94 Mean Corpuscular Hemoglobin 32 pg High 27-31 Mean Corpuscular HGB Conc 34 g/dL N 31-36 Red Cell Distribution Width 14 % N 10.5-15 Platelet Count 187 10^3/uL N 150-450 Mean Platelet Volume 8 um3 N 7.4-10.4 Abs Neutrophils 5.6 10^3/uL N 1.5-7.7 Abs Lymphocytes 1.3 10^3/uL N 1.0-4.8 Abs Monocytes 0.2 10^3/uL N 0-0.8 Abs Eosinophils 0.1 10^3/uL N 0-0.6 Abs Basophils 0 10^3/uL N 0-0.2 Abs Nucleated RBC 0 10^3/uL Granulocyte % 77.3 % N 38-83 Lymphocyte % 18.2 % Low 25-47 Monocyte % 2.6 % N 1-9 Eosinophil % 1.6 % N 0-6 Basophil % 0.3 % N 0-2 Nucleated Red Blood Cells % 0 Basic Metabolic Panel 08/01/2017 [facility] Sodium 139 mmol/L N 133-[address] [place] [address] [phone] Potassium 4.2 mmol/L N 3.5-5.0 Chloride 104 mmol/L N 101-111 Co2 Carbon Dioxide 31 mmol/L N 22-32 Anion Gap 4 mmol/L N 2-11 Glucose 116 mg/dL High 70-100 Blood Urea Nitrogen 21 mg/dL N 6-24 Creatinine 1.06 mg/dL N 0.67-1.17 BUN/Creatinine Ratio 19.8 N 8-20 Calcium 9.8 mg/dL N 8.6-10.3 Egfr Non- 70.1 >60 Egfr 90.2 >60 1 Laboratory test 08/01/2017 [facility] Magnesium 2.0 mg/dL N 1.9-2.7 finding [address] [place] [address] [phone] Troponin-I (TnI) 0.00 ng/mL <0.04 Inr/Protime 07/31/2017 [facility] Inr 1.00 N 0.77-1.02 2, 3 [address] [place] [address] [phone] CBC No Diff 07/31/2017 [facility] White Blood 10.4 N 3.5-10.[address] [place] [address] Count 10^3/[place] [address] [phone] Red Blood Count 4.42 10^6/uL N 4.0-5.4 Hemoglobin 13.8 g/dL Low 14.0-18.0 Hematocrit 41 % Low 42-52 Mean Corpuscular Volume 93 fL N 80-94 Mean Corpuscular Hemoglobin 31 pg N 27-31 Mean Corpuscular HGB Conc 34 g/dL N 31-36 Red Cell Distribution Width 14 % N 10.5-15 Platelet Count 202 10^3/uL N 150-450 Mean Platelet Volume 9 um3 N 7.4-10.4 Type & Screen 07/31/2017 [facility] Patient Blood Type O Positive [address] [place] [address] [phone] Antibody Screen NEGATIVE Basic Metabolic Panel 07/31/2017 [facility] Sodium 141 mmol/L N 133-[address] [place] [address] [phone] Potassium 4.0 mmol/L N 3.5-5.0 Chloride 104 mmol/L N 101-111 Co2 Carbon Dioxide 33 mmol/L High 22-32 Anion Gap 4 mmol/L N 2-11 Glucose 82 mg/dL N 70-100 Blood Urea Nitrogen 23 mg/dL N 6-24 Creatinine 1.00 mg/dL N 0.67-1.17 BUN/Creatinine Ratio 23.0 High 8-20 Calcium 9.3 mg/dL N 8.6-10.3 Egfr Non- 75.0 >60 Egfr 96.4 >60 4 Laboratory test 07/31/2017 [facility] TSH (Thyroid 0.61 mcIU/mL N 0.34-5.60 [address] [place]) [place] [address] [phone] 1 Because ethnic data is not always readily available, this report includes an eGFR for both -Americans and non- Americans. The National Kidney Disease Education Program (NKDEP) does not endorse the use of the MDRD equation for patients that are not between the ages of 18 and 70, are , have extremes of body size, muscle mass, or nutritional status, or are non- or non-. According to the National Kidney Foundation, irrespective of diagnosis, the stage of the disease is based on the level of kidney function: Stage Description GFR(mL/min/1.73 m(2)) 1 Kidney damage with normal or decreased GFR 90 2 Kidney damage with mild decrease in GFR 60-89 3 Moderate decrease in GFR 30-59 4 Severe decrease in GFR 15-29 5 Kidney failure <15 (or dialysis) 2 AA 08/01 3 Please note the change in INR reference range effective 17. 4 Because ethnic data is not always readily available, this report includes an eGFR for both -Americans and non- Americans. The National Kidney Disease Education Program (NKDEP) does not endorse the use of the MDRD equation for patients that are not between the ages of 18 and 70, are , have extremes of body size, muscle mass, or nutritional status, or are non- or non-. According to the National Kidney Foundation, irrespective of diagnosis, the stage of the disease is based on the level of kidney function: Stage Description GFR(mL/min/1.73 m(2)) 1 Kidney damage with normal or decreased GFR 90 2 Kidney damage with mild decrease in GFR 60-89 3 Moderate decrease in GFR 30-59 4 Severe decrease in GFR 15-29 5 Kidney failure <15 (or dialysis) 5 AA 08/01 Procedures Date Code Description Status 08/01/2017 79415 EKG, Interpretation Only Completed 08/01/2017 69926 Use Of Operating Microscope Completed 08/01/2017 15345 Use Of Operating Microscope Completed 08/01/2017 85790 Laminotomy W/Decomp NRV RT,One Interspace,Lumbar Completed 08/01/2017 50111 Laminotomy W/Decomp NRV RT,One Interspace,Lumbar Completed Encounters Type Date Location Provider Dx Diagnosis Office Visit 11/10/2018 [facility] M51.26 Other intervertebral 10:00a Services Of Anila Burns MD disc displacement, lumbar region Office Visit 09/19/2018 [facility] M51.26 Other intervertebral 3:00p Services Of Anila Burns MD disc displacement, lumbar region Office Visit 07/08/2018 [facility] Z48.89 Encounter for other 10:00a Services Of Anila Burns MD specified surgical aftercare Office Visit 11/29/2017 [facility] Z48.89 Encounter for other 9:00a Services Of Anila Burns MD specified surgical aftercare Office Visit 08/01/2017 [facility] J45.909 Unspecified asthma, 9:44a Assoc,keiko Haley, RESEARCH SUBJECT uncomplicated Hospitalists R00.1 Bradycardia, unspecified Z98.890 Other specified postprocedural states Z87.39 Personal history of diseases of the ms sys and conn tiss Office Visit 08/01/2017 3:45p [facility] Oriana Fernandez, R00.1 Bradycardia, Of Anila Pena unspecified R00.2 Palpitations Office 07/29/2017 [facility] M51.26 Other Visit 12:30p Services Of Anila Burns MD intervertebral disc displacement, lumbar region M51.16 Intervertebral disc disorders w radiculopathy, lumbar region Office 07/26/2017 [facility] M51.26 Other Visit 7:00a Services Of Anila Burns MD intervertebral disc displacement, lumbar region M51.16 Intervertebral disc disorders w radiculopathy, lumbar region Plan of Treatment Future Appointment(s):03/26/2019 4:00 pm - Doreen Burns MD at [facility]03/20/2019 - Jann Pablo, PAM51.26 Other intervertebral disc displacement, lumbar regionReferral:Ted Hood MD, Interventional Pain JjbvyD05.16 Intervertebral disc disorders w radiculopathy, lumbar tgkcxbI39.12 Radiculopathy, cervical regionNew Xrays:MRI Cervical Spine Wo, Ordered: 03/20/19MRI Upper Extremity Right Wo, Ordered: 03/20/19New Orders: EMG w/Nerve Conduct Study, Upper, Ordered: 03/20/19Referral:Vasile Reddy MD , Surgery,Hand OrthopedicFollow up:RV in one weekG45.9 Transient cerebral ischemic attack, unspecifiedNew Xrays:MRI Brain W/O, Ordered: 03/20/19
[2019-03-20 17:24] LABS: ABS Eosinophils 0.2 10^3/ul (0-0.6); ABS Lymphocytes 1.8 10^3/ul (1.0-4.8); ABS Monocytes 0.9 10^3/ul (0-0.8); ABS Neutrophils 5.9 10^3/ul (1.5-7.7); Hematocrit 47 % (42-52); Lymphocyte % 20.9 %; Mean Corpuscular HGB Conc 34 g/dL (31-36); Mean Corpuscular Hemoglobin 32 pg (27-31); Mean Corpuscular Volume 92 fL (80-94); Mean Platelet Volume 7.8 fL (7.4-10.4); Platelet Count 247 10^3/uL (150-450); Red Blood Count 5.07 10^6 /uL (4.18-5.48); Red Cell Distribution Width 14 % (10-15); White Blood Count 8.8 10^3/uL (3.5-10.8)
[2019-03-20 17:38] LABS: ALT 22 U/L (7-52); AST 23 U/L (13-39); Albumin 4.6 g/dL (3.2-5.2); Albumin/Globulin Ratio 1.4 (1-3); Alkaline Phosphatase 73 U/L (34-104); Anion Gap 8 mmol/L (2-11); BUN/Creatinine Ratio 22.7 (8-20); Blood Urea Nitrogen 20 mg/dL (6-24); CO2 Carbon Dioxide 28 mmol/L (22-32); Calcium 10.7 mg/dL (8.6-10.3); Chloride 102 mmol/L (101-111); EGFR African American 104.5 (>60); EGFR Non-African American 86.4 (>60); Globulin 3.3 g/dL (2-4); Glucose 114 mg/dL (70-100); Potassium 4.1 mmol/L (3.5-5.0); Sodium 138 mmol/L (135-145); Total Protein 7.9 g/dL (6.4-8.9)
--- NOTE | 2019-03-20 18:05 | ED ---
Back Pain - HPI Summary HPI Summary: The patient is a 68 y/o M presenting to [facility] with a chief complaint of back, RUE, and BLE pain starting weeks ago with worsening about a week ago. He reports that he had back surgery 18 months [address] performed by Dr. Burns because the patient experiencing BLE pain and numbness in the right foot. Since the surgery, his pain has been improved until he recently started having RUE and BLE pain with numbness in the right hand at the fifth finger and palm. He additionally c/o back pain and numbness in the toes on the right foot. The symptoms are aggravated by sitting or lying for long. He notes that he has difficulty sleeping secondary to the pain. His pain is currently rated 3/10 in severity. He denies any urinary symptoms and weakness or other neurological symptoms. Hx of asthma, arthritis. Nonsmoker, rare EtOH, no substance use. Dr. Burns wanted the patient to come to the ED. - History of Current Complaint Chief Complaint: EDBackInjuryPain Stated Complaint: REEVALUATION OF MRI, SENT BY DR BURNS PER PT Time Seen by Provider: 03/20/19 17:35 Hx Obtained From: Patient Onset/Duration: Gradual Onset, Lasting Weeks, Still Present, Worse Since - last week Onset/Duration: Started Weeks Ago, Still Present Timing: Lasting Weeks Back Pain Location: Is Discrete @ - RUE, BLE Severity Initially: Mild Severity Currently: Moderate Pain Intensity: 3 Pain Scale Used: 0-10 Numeric Character: Aching Aggravating Symptom(s): Other - lying or sitting for long periods of time Alleviating Symptom(s): Nothing Associated Signs And Symptoms: Positive: Numbness - in right hand at pinky and palm and toes on right foot, Other - POSITIVE: RUE pain, BLE pain; NEGATIVE: urinary symptoms. Negative: Weakness - Allergies/Home Medications Allergies/Adverse Reactions: Allergies Allergy/AdvReac Type Severity Reaction Status Date / Time No Known Allergies Allergy Verified 08/01/17 06:18 PMH/Surg Hx/FS Hx/Imm Hx Endocrine/Hematology History: Denies: Hx Anticoagulant Therapy, Hx Blood Disorders, Hx Thyroid Disease, Hx Anemia, Hx Unexplained Bleeding Cardiovascular History: Denies: Hx Pacemaker/ICD Respiratory History: Reports: Hx Asthma - USES INHALER Musculoskeletal History: Reports: Hx Arthritis, Hx Back Problems - intermittent low back pain - no meds or specialist Sensory History: Reports: Hx Cataracts - IN LEFT EYE , SURGERY NOT REQUIRED, Hx Contacts or Glasses - GLASSES Denies: Hx Hearing Aid Opthamlomology History: Reports: Hx Cataracts - IN LEFT EYE , SURGERY NOT REQUIRED, Hx Contacts or Glasses - GLASSES Neurological History: Denies: Hx CVA, Hx Dementia, Hx Headaches, Hx Migraine, Hx Nerve Disease, Hx Peripheral Neuropathy, Hx Seizures, Hx Spinal Cord Injury Psychiatric History: Denies: Hx Panic Disorder - Surgical History Surgery Procedure, Year, and Place: HERNIA REPAIR 01/2017 [facility] Hx Anesthesia Reactions: No - Immunization History Date of Tetanus Vaccine: unknown Date of Influenza Vaccine: 06/2017 Infectious Disease History: No Infectious Disease History: Denies: Traveled Outside the [place] in Last 30 Days - Family History Known Family History: Negative: Cardiac Disease, Hypertension, Diabetes - Social History Alcohol Use: Rare Hx Substance Use: No Substance Use Type: Reports: None Hx Tobacco Use: No Smoking Status (MU): Never Smoked Tobacco Have You Smoked in the Last Year: No Review of Systems Positive: Other - difficulty sleeping secondary to pain Positive: no symptoms reported Positive: Myalgia - RUE and BLE pain, back pain Positive: Numbness - in right hand at fifth finger and palm, in toes on the right foot. Negative: Weakness All Other Systems Reviewed And Are Negative: Yes Physical Exam - Summary Physical Exam Summary: Appearance: Well appearing, no pain distress Skin: warm, dry, reflects adequate perfusion Head/face: normal Eyes: EOMI, KRISTIE ENT: normal Neck: supple, non-tender Respiratory: CTA, breath sounds present Cardiovascular: RRR, pulses symmetrical Abdomen: non-tender, soft Musculoskeletal: normal, strength/ROM intact Neuro: normal, sensory motor intact, A&Ox3, GCS: 15 Triage Information Reviewed: Yes Vital Signs On Initial Exam: Initial Vitals Temp Pulse Resp BP Pulse Ox 98.7 F 90 24 180/111 96 03/20/19 16:27 03/20/19 16:27 03/20/19 16:27 03/20/19 16:27 03/20/19 16:27 Vital Signs Reviewed: Yes - José Coma Scale Best Eye Response: 4 - Spontaneous Best Motor Response: 6 - Obeys Commands Best Verbal Response: 5 - Oriented Coma Scale Total: 15 Diagnostics - Vital Signs Vital Signs Temp Pulse Resp BP Pulse Ox 03/20/19 16:27 98.7 F 90 24 180/111 96 - Laboratory Lab Results: Lab Results 03/20/19 03/20/19 03/20/19 Range/Units 17:14 17:14 17:14 WBC 8.8 (3.5-10.8) 10^3/uL RBC 5.07 (4.18-5.48) 10^6 /uL Hgb 16.0 (14.0-18.0) g/dL Hct 47 (42-52) % MCV 92 (80-94) fL MCH 32 H (27-31) pg MCHC 34 (31-36) g/dL RDW 14 (10-15) % Plt Count 247 (150-450) 10^3/uL MPV 7.8 (7.4-10.4) fL Neut % (Auto) 67.0 % Lymph % (Auto) 20.9 % [place] % (Auto) 9.7 % Eos % (Auto) 2.0 % Baso % (Auto) 0.4 % Absolute Neuts (auto) 5.9 (1.5-7.7) 10^3/ul Absolute Lymphs (auto) 1.8 (1.0-4.8) 10^3/ul Absolute Monos (auto) 0.9 H (0-0.8) 10^3/ul Absolute Eos (auto) 0.2 (0-0.6) 10^3/ul Absolute Basos (auto) 0.0 (0-0.2) 10^3/ul Absolute Nucleated RBC 0.0 10^3/ul Nucleated RBC % 0.0 Sodium 138 (135-145) mmol/L Potassium 4.1 (3.5-5.0) mmol/L Chloride 102 (101-111) mmol/L Carbon Dioxide 28 (22-32) mmol/L Anion Gap 8 (2-11) mmol/L BUN 20 (6-24) mg/dL Creatinine 0.88 (0.67-1.17) mg/dL Est GFR ( Amer) 104.5 (>60) Est GFR (Non-Af Amer) 86.4 (>60) BUN/Creatinine Ratio 22.7 H (8-20) Glucose 114 H (70-100) mg/dL Lactic Acid 0.9 (0.5-2.0) mmol/L Calcium 10.7 H (8.6-10.3) mg/dL Total Bilirubin 0.70 (0.2-1.0) mg/dL AST 23 (13-39) U/L ALT 22 (7-52) U/L Alkaline Phosphatase 73 (34-104) U/L Total Protein 7.9 (6.4-8.9) g/dL Albumin 4.6 (3.2-5.2) g/dL Globulin 3.3 (2-4) g/dL Albumin/Globulin Ratio 1.4 (1-3) Serum Alcohol Pending Result Diagrams: 03/20/19 17:14 03/20/19 17:14 Lab Statement: Any lab studies that have been ordered have been reviewed, and results considered in the medical decision making process. - Radiology Brain MRI Radiology Interpretation Completed By: Radiologist Summary of Radiographic Findings: Normal noncontrast brain MRI. ED physician has reviewed this report. Cervical Spine MRI Radiology Interpretation Completed By: Radiologist Summary of Radiographic Findings: Impression: Mild multilevel cervical spondylopathy with C3-C4 disc extrusion and no visualized nerve are compression. ED physician has reviewed this report. - EKG 1817 Cardiac Rate: NL - 70 bpm EKG Rhythm: Sinus Rhythm Summary of EKG Findings: NSR at 70 bpm. No acute changes. Re-Evaluation - Re-Evaluation First Eval Re-Evaluation Time: 21:00 Comment: I discussed findings and discharge plan with the patient. Back Pain Course/Dx - Course Course Of Treatment: The patient is a 68 y/o M presenting to [facility] with a chief complaint of back, RUE, and BLE pain starting weeks ago with worsening about a week ago. He reports that he had back surgery 18 months ago performed by Dr. Burns, who recommended that the patient come to the ED to rule out TIA given patients symptoms of numbness in the right hand at the fifth finger and palm and in the toes on the right foot. Denies weakness. Upon physical exam, the patient exhibits no acute abnormalities. I spoke with Dr. Burns at 1801 , who would like to rule out TIA for the patient with Brain MRI and Cervical Spine MRI. Blood work and UA obtained. Toxicology report negative for serum alcohol. EKG at 1818 reveals NSR at 70 bpm. Brain MRI impression reveals normal noncontrast brain MRI. Cervical Spine MRI Impression: Mild multilevel cervical spondylopathy with C3-C4 disc extrusion and no visualized nerve are compression. I spoke with Dr. Burns at 2055 to report findings for the patient. He agrees to follow up with patient as an outpatient in his office. Patient is diagnosed with chronic back pain. He will be discharged home with follow up with Dr. Burns. He agrees with this plan. - Diagnoses Differential Diagnosis/HQI/PQRI: Positive: Arthritis, Herniated Disc, Sprain Provider Diagnoses: Chronic back pain, Radiculopathy of cervical region - Provider Notifications Discussed Care Of Patient With: Doreen Burns - neurosurgery Time Discussed With Above Provider: 18:01 Instructed by Provider To: Other - Dr. Burns recommends TIA rule out with Brain MRI and Cervical Spine MRI. I discussed results of MRIs and blood work with Dr. Burns at 2055. He will follow up with the patient in his office. Discharge - Sign-Out/Discharge Documenting (check all that apply): Patient Departure - Patient will be discharged home. Patient Received Moderate/Deep Sedation with Procedure: No - Discharge Plan Condition: Stable Disposition: HOME Patient Education Materials: Chronic Back Pain (DC) Referrals: Kelsi Jacobs MD [Primary Care Provider] - 3 Days Doreen Burns MD [Medical Doctor] - 1 Day Additional Instructions: Follow up with Dr. Burns in 1-2 days for outpatient treatment. RETURN TO THE EMERGENCY DEPARTMENT FOR ANY NEW OR WORSENING SYMPTOMS. - Billing Disposition and Condition Condition: STABLE Disposition: Home - Attestation Statements Document Initiated by Dagoberto: Yes Documenting Scribe: Michelle Holland Provider For Whom Dagoberto is Documenting (Include Credential): Dr. Greg Argueta MD Scribe Attestation: Michelle Lu scribed for Dr. Greg Argueta MD on 03/21/19 at 1628. Scribe Documentation Reviewed: Yes Provider Attestation: The documentation as recorded by the Michelle vincent accurately reflects the service I personally performed and the decisions made by me, Dr. Greg Argueta MD Status of Scribe Document: Viewed
[2019-03-20 18:06] LABS: Urine Appearance Clear; Urine Bilirubin Negative (Negative); Urine Blood Negative (Negative); Urine Color Yellow; Urine Glucose Negative (Negative); Urine Ketones Trace (Negative); Urine Nitrite Negative (Negative); Urine Protein Negative (Negative); Urine Specific Gravity 1.018 (1.010-1.030); Urine Urobilinogen Negative (Negative)
[2019-03-20 18:25] LABS: Alcohol < 10 mg/dL (<10)
[2019-03-20 20:32] VITALS: BP 170/98
== END 2019-03-20 21:10 | disposition home or self-care (01) ==
LOC: ED 16:24
DX: G89.28 Other chronic postprocedural pain (principal); M54.9 Dorsalgia, unspecified; M54.12 Radiculopathy, cervical region; M50.21 Other cervical disc displacement, high cervical region; R00.8 Other abnormalities of heart beat; R53.1 Weakness
CPT/HCPCS: 36415; 70551; 72141; 80053; 80320; 81003; 83605; 84484; 85025; 93005; 99282; G0480

== ENCOUNTER 2019-03-22 11:08 | Inpatient (IN) | payer MEDICARE ==
--- NOTE | 2019-03-22 11:57 | ED ---
Neurological HPI - HPI Summary HPI Summary: The pt is a 68 yr old male presenting to [facility] c/o numbness to the right arm, left leg, and sensations of gait unsteadiness gradually worsening in the last week. 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 The pt states that he had been previously seen for BLE pain and numbness, but he mentions that the numbness has begun to increase in various areas of his extremities. He describes his pain as a dull background but sometimes sharp sensation. He states that the numbness is primarily located in his right hand, right forearm, toes, and left upper thigh. He notes that the pain in his legs is aggravated with sitting or lying down and that he has difficulty sleeping as a result. The numbness and pain is alleviated after standing up. He saw Dr. Burns, who performed back surgery on the patient 18 months ago but his symptoms have changed, so Dr. Burns recommended that the patient come back to the ED for re-evaluation and neurological workup. - History of Current Complaint Chief Complaint: EDNeurologicalDeficit Stated Complaint: STROKE LIKE SYMPTOMS Time Seen by Provider: 03/22/19 11:16 Hx Obtained From: Patient Onset/Duration: Gradual Onset, Started days ago, Still Present Timing: Constant Onset Severity: Mild Current Severity: Moderate Neurological Deficit Location: RUE, RLE, LLE Pain Intensity: 0 Pain Scale Used: 0-10 Numeric Character: Numbness/Tingling Aggravating: Position Change/Supine to Erect - sitting or lying down aggravates pain in legs. Alleviating: Position Change - Standing up alleviates pain in legs Associated Signs and Symptoms: Positive: Unsteady Gait, Numbness - Additional Pertinent History Primary Care Physician: [id number] - Allergy/Home Medications Allergies/Adverse Reactions: Allergies Allergy/AdvReac Type Severity Reaction Status Date / Time No Known Allergies Allergy Verified 03/22/19 11:47 PMH/Surg Hx/FS Hx/Imm Hx Endocrine/Hematology History: Denies: Hx Anticoagulant Therapy, Hx Blood Disorders, Hx Thyroid Disease, Hx Anemia, Hx Unexplained Bleeding Cardiovascular History: Denies: Hx Pacemaker/ICD Respiratory History: Reports: Hx Asthma - USES INHALER Musculoskeletal History: Reports: Hx Arthritis, Hx Back Problems - intermittent low back pain - no meds or specialist Sensory History: Reports: Hx Cataracts - IN LEFT EYE , SURGERY NOT REQUIRED, Hx Contacts or Glasses - GLASSES Denies: Hx Hearing Aid Opthamlomology History: Reports: Hx Cataracts - IN LEFT EYE , SURGERY NOT REQUIRED, Hx Contacts or Glasses - GLASSES Neurological History: Denies: Hx CVA, Hx Dementia, Hx Headaches, Hx Migraine, Hx Nerve Disease, Hx Peripheral Neuropathy, Hx Seizures, Hx Spinal Cord Injury Psychiatric History: Denies: Hx Panic Disorder - Surgical History Surgery Procedure, Year, and Place: HERNIA REPAIR 01/2017 [facility] Hx Anesthesia Reactions: No - Immunization History Date of Tetanus Vaccine: unknown Date of Influenza Vaccine: 06/2017 Infectious Disease History: No Infectious Disease History: Denies: Traveled Outside the [place] in Last 30 Days - Family History Known Family History: Positive: None, Other - Parkinson's Disease. Negative: Cardiac Disease, Hypertension, Diabetes - Social History Alcohol Use: Rare Hx Substance Use: No Substance Use Type: Reports: None Hx Tobacco Use: No Smoking Status (MU): Never Smoked Tobacco Have You Smoked in the Last Year: No Review of Systems Constitutional: Other - Positive - Sensations of "Unsteadiness" Positive: Other - Positive - pain in legs aggravated by sitting or lying down Positive: Numbness - To the right hand, right forearm, toes, and left upper thigh. All Other Systems Reviewed And Are Negative: Yes Physical Exam - Summary Physical Exam Summary: Constitutional: Well-developed, Well-nourished, Alert. (-) Distressed Skin: Warm, Dry HENT: Normocephalic; Atraumatic Eyes: Conjunctiva normal Neck: Musculoskeletal ROM normal neck. (-) JVD, (-) Stridor Cardio: Rhythm regular, rate normal, Heart sounds normal; Intact distal pulses; Radial pulses are 2+ and symmetric. (-) Murmur Pulmonary/Chest wall: Effort normal. (-) Respiratory distress Abd: Soft, (-) tenderness, (-) Distension, (-) Guarding, (-) Rebound Musculoskeletal: (-) Edema Lymph: (-) Cervical adenopathy Neuro: Alert, Oriented x3. Cranial nerves II through XII intact. Strength 5/5 bilateral upper and lower extremities, decreased sensation to left lateral thigh , right hand and forearm and ulnar distribution. As well as distal toes ( chronic). No dysmetria. Ataxic gait with ambulation. Psych: Mood and affect Normal Triage Information Reviewed: Yes Vital Signs On Initial Exam: Initial Vitals Temp Pulse Resp BP Pulse Ox 97.1 F 117 20 127/105 96 03/22/19 11:09 03/22/19 11:09 03/22/19 11:09 03/22/19 11:09 03/22/19 11:09 Vital Signs Reviewed: Yes Procedures - Lumbar Puncture 1500 Position: Sitting Aseptic Technique: Lidocaine Anesthesia Used: 2.0% Lido Lumbar Puncture Note: between L3-L4 and L4-L5 x3 after being unsuccessful Diagnostics - Vital Signs Vital Signs Temp Pulse Resp BP Pulse Ox 03/22/19 11:25 101 23 164/110 95 03/22/19 11:22 103 95 03/22/19 11:09 97.1 F 117 20 127/105 96 - Laboratory Result Diagrams: 03/22/19 13:02 03/22/19 13:02 Lab Statement: Any lab studies that have been ordered have been reviewed, and results considered in the medical decision making process. Re-Evaluation - Re-Evaluation First Eval Re-Evaluation Time: 12:40 Comment: Discussed consult with Dr. Burns with pt. Second Eval Re-Evaluation Time: 14:00 Comment: I discussed admission with the patient after consulting with Dr. Clay and Dr. Burns findings. We'll attempt LP Course/Dx - Course Course Of Treatment: 68-year-old, and a history of right-sided foot drop s/p L4- 5 disketctomy in 2017 p/w paresthesias. - Recent workup for right ulnar disposition. Workup w negative brain and Cspine MRI. Patient now with left lateral thigh paresthesias and slight unsteady gait. - will d/w Dr. Anna. Patient would benefit from neurological workup - Diagnoses Provider Diagnoses: Peripheral neuropathy, Ataxia - Physician Notifications Discussed Care Of Patient With: Debbie Stock - Dr. Stock will [place] [facility] Time Discussed With Above Provider: 13:57 Instructed by Provider To: Other - [address] Escobar, who wants to order an MRI Lumbar Spine and RUE for the pt. [address] Clay, neurology, who will come see the pt at [facility]. He reports that the patient has an ataxic gait, and admission is recommended at this time. Dr. Burns, neurosurgery, agrees, and the MRI will be ordered by Dr. Clay. Pt will be admited to [facility] [place]. Stock, hospitalist, at 1400. Discharge - Sign-Out/Discharge Documenting (check all that apply): Patient Departure - Admit Patient Received Moderate/Deep Sedation with Procedure: No - Discharge Plan Condition: Stable Disposition: ADMITTED TO [facility] - Billing Disposition and Condition Condition: STABLE Disposition: Admitted to [facility] - Attestation Statements Document Initiated by Scribe: Yes Documenting Scribe: Wm Conti Provider For Whom Alexandroibe is Documenting (Include Credential): Dr. Ceci Flores Scribe Attestation: I, Wm Conti, scribed for Dr. Ceci Flores on 03/22/19 at 1829. Scribe Documentation Reviewed: Yes Provider Attestation: The documentation as recorded by the scribe, Wm Conti accurately reflects the service I personally performed and the decisions made by me, Dr. Ceci Flores Status of Scribe Document: Viewed
[2019-03-22 13:08] LABS: ABS Eosinophils 0.1 10^3/ul (0-0.6); ABS Neutrophils 6.5 10^3/ul (1.5-7.7); Eosinophil % 1.2 %; Hematocrit 48 % (42-52); Hemoglobin 16.1 g/dL (14.0-18.0); Lymphocyte % 20.6 %; Mean Corpuscular HGB Conc 34 g/dL (31-36); Mean Corpuscular Hemoglobin 31 pg (27-31); Mean Corpuscular Volume 92 fL (80-94); Mean Platelet Volume 7.4 fL (7.4-10.4); Platelet Count 262 10^3/uL (150-450); Red Blood Count 5.14 10^6 /uL (4.18-5.48); Red Cell Distribution Width 14 % (10-15); White Blood Count 9.6 10^3/uL (3.5-10.8)
[2019-03-22 13:24] LABS: Albumin 4.4 g/dL (3.2-5.2); Albumin/Globulin Ratio 1.4 (1-3); BUN/Creatinine Ratio 24.7 (8-20); Calcium 10.5 mg/dL (8.6-10.3); EGFR African American 93.4 (>60); EGFR Non-African American 77.2 (>60); Globulin 3.2 g/dL (2-4); Potassium 4.1 mmol/L (3.5-5.0); Total Bilirubin 0.8 mg/dL (0.2-1.0); Total Protein 7.6 g/dL (6.4-8.9)
[2019-03-22 14:34] LABS: TSH (Thyroid Stimulating Horm) 1.1 mcIU/mL (0.34-5.60)
[2019-03-22] MEDS ORDERED: Ondansetron INJ* 2 MG/ML VIAL IV PRN (14:47)
[2019-03-22] MEDS ORDERED: Acetaminophen TAB* 325 MG PO PRN (14:47)
[2019-03-22] MEDS ORDERED: Albuterol HFA INHALER* 8 gm MDI INH PRN (14:50)
[2019-03-22] MEDS ORDERED: oxyCODONE/Acetamin 5/325 MG* TAB PO PRN (14:51)
[2019-03-22 14:54] LABS: INR 1.13 (0.82-1.09)
[2019-03-22] MEDS ORDERED: Lidocaine 2% EPI 1:200000 MPF* 10 ML VIAL INJ ONE (14:58)
[2019-03-22] MEDS ORDERED: Enoxaparin(*) 40 MG/0.4 ML SYR SUBCUT SCH (15:00)
[2019-03-22] MEDS ORDERED: Lidocaine 2% w/ EPI 1:200,000* 20 ML SDV VIAL ONE (15:04)
--- NOTE | 2019-03-22 18:07 | CONS ---
NEUROLOGY CONSULTATION NOTE: DATE OF CONSULT: 03/22/19 CONSULTING PROVIDER: Dr. Ceci Flores. REASON FOR CONSULT: Numbness of the hands. CHIEF COMPLAINT: Unsteady gait. 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 Burns in 2017. The patient is otherwise healthy and is in good shape. Mr. Soni developed symptoms of an upper respiratory tract infection 1 month ago. He required antibiotic therapy. He thinks he was prescribed amoxicillin. He also developed an asthma attack in the setting of the respiratory infection and required inhalers. Over the last 10 to 12 days, the patient has noticed bizarre neurological complaints. On 03/11/19, the patient noticed numbness sensation in the right hand. The numbness was mostly involving the fourth and fifth digits. The numbness progressed and now is involving the entire hand and the medial forearm. Over the last 1 week, he has noticed sharp achy pain involving all his extremities with a fixed sensation of numbness that started Saturday in the left lateral anterior thigh. The numbness is constant. He has not gained weight. He does not use tight belts around his waist. The pain is worse at nighttime. Lying down in a recliner exacerbates the pain. Interestingly, he feels well when he is walking and throughout the day. He went to see Dr. Burns on Saturday, who sent him to the ER to evaluate for any possible cervical spine pathology. In the ED, the patient had an MRI of the brain and an MRI of the cervical spine without contrast. I personally reviewed both studies. There was no evidence for any severe spinal stenosis or neural foraminal disease in the cervical spine. Also, there were no findings of any areas of restricted diffusion on the MRI of the brain. The patient was discharged home from the ED. However, over the past 24 hours, he has developed new symptoms of gait instability. The patient noticed trouble getting off the recliner last evening and also this morning. He required multiple attempts before he can stand steadily on his feet. When he walks, he feels unstable. He feels staggering. The symptoms seemed to get better when he walks after a few minutes. Of note, the patient went to [place], [place], last week and was able to walk for over 2 to 3 miles during the air show. The patient does have deer around his house, so he could have been exposed to ticks. He does not recall any rash. He denied any heavy metal exposure. He has not traveled outside the country. He stated that usually his blood pressure is always within normal to low range. His blood pressure today is extremely elevated with systolic in the 170s. The patient denied history of diabetes. PAST SURGICAL HISTORY: Lumbar spine surgery and hernia repair. MEDICATIONS: The patient is using an albuterol inhaler at this time, but he does not take any regular home medications other than multivitamins. ALLERGIES: No known drug allergies. FAMILY HISTORY: His maternal uncle has Parkinson's. He denied any history of seizures. He recalls his mother having multiple strokes due to chronic hypertension. SOCIAL HISTORY: The patient lives alone at home. He has a pet parrot. 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 He denied any tobacco abuse. He drinks alcohol rarely, a glass of wine once a week. REVIEW OF SYSTEMS: A 14-point review of systems was obtained that is otherwise negative except for what was mentioned in the HPI. PHYSICAL EXAM: Vitals: Temperature of 97.1, pulse of 81, respiratory rate of 23, oxygen saturation of 95%, blood pressure has been slightly elevated with most recent blood pressure of 164/102. Again, the patient endorsed having low blood pressure at baseline and this is very unusual for him to have such elevated systolic and diastolic blood pressures. General: Well-appearing, well -nourished man, in no acute distress. Head: Atraumatic, normocephalic without any obvious abnormalities. Neck is supple and symmetrical with no carotid bruits. Negative Spurling's sign bilaterally. No nuchal rigidity. Eyes: Conjunctivae/corneas are clear. Respiratory: Clear to auscultation bilaterally with no rhonchi or wheezing. Cardiovascular: Regular rate and rhythm with normal S1, S2. Slightly tachycardic when he got up to ambulate. Extremities: No hammertoes or high arches. No cyanosis. Skin: No skin lesions or lacerations. No apparent rash. Psych: Broad affect, normal mood. Easy to establish rapport. Neurological Examination: Mental Status: Awake, alert, and oriented to person, place, time, and general circumstances. Speech and language including expression, repetition, and comprehension were all assessed and found to be normal. The patient has intact both short and long- term memory. Cranial Nerves: Normal confrontation testing bilaterally except for slight weakness to vertical eye movement, requiring the patient to actually extend his neck backwards. There may be slight proptosis. No nystagmus. No ptosis. Pupils are equal, round, reactive to light and accommodation bilaterally. Normal sensation to light touch on both sides of the face. No facial asymmetry. Tongue is symmetrical and midline with no atrophy or fasciculation. Motor Examination: Normal tone and bulk throughout. 5/5 strength in the upper and lower extremities proximally and distally. He may have slight extensor hallucis longus weakness on the right side, most likely residual weakness from his prior lumbar spine surgery. I did not notice any footdrop which he had in 2017. No fasciculation noted. Sensation: Prominent distal to proximal sensory gradient to light touch and pinprick demarcated to the mid shins area bilaterally. He has complete loss of sensation on the lateral cutaneous femoral nerve on the left side. He has reduced sensation to pinprick in the medial aspect of the forearm on the right as well as digit 5. Proprioception is intact at the great toes. Vibration is 4 seconds on the right and 3 seconds on the left great toe. Romberg sign is positive with swaying towards the right side as well as slight retropulsion. Coordination: Normal [id number] on the right with slight finger- to-nose dysmetria on the left. Gait: Wide-based gait. No shuffling. Mild ataxia towards the left side. The patient has 2+ reflexes in the brachioradialis, biceps, triceps on both upper extremities with 0 reflexes in the knees and ankles. 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 These complaints include numbness in the left proximal thigh, numbness of the right medial aspect of the hand, an gait ataxia. An upper respiratory tract infection preceded these symptoms. On examination, the patient has evidence of areflexia involving the lower extremity, sensory ataxia, and sensory abnormality in the distribution of the right ulnar nerve as well as the lateral cutaneous femoral nerve on the left side. He has no significant ophthalmoplegia, although he had subtle difficulty with vertical eye movements requiring some extension of the neck. He has no motor weakness and no focal area of lateralizing neurological deficits. His examination findings are mostly diffuse and suggestive of a possible inflammatory demyelinating process such as Guillain-Artemus syndrome. 1. Focal sensory abnormality, peripheral neuropathy, and gait ataxia of subacute onset - the differential diagnosis here is broad. We will need to evaluate for an inflammatory or metabolic problems that may be causing neuropathy, or investigate for early form of demyelinating neuropathy. We excluded any intracranial disease in the brain or in the cervical spinal cord given the MRI imaging that he had on 03/20/19. Some other differential diagnosis such as Lyme disease, vitamin B12 deficiency, and thyroid disease would need to be further evaluated. RECOMMENDATIONS: I recommend admission to the hospitalist service for further evaluation of the patient's acute to subacute neurological disturbances. I have already ordered vitamin B12, vitamin B1, vitamin E, copper, TSH, SPEP, lyme , RAFAEL, SSA-SSB, ESR, and C-reactive protein to rule out any metabolic, inflammatory, or autoimmune causes of sudden onset sensory ataxia. If the above workup is negative, the patient would most likely need an inpatient EMG/ nerve conduction study to evaluate for demyelinating neuropathy or prolonged F- waves. I also have ordered an MRI of the lumbar spine with and without contrast as we can see some nerve root or cauda equina enhancement early on the course of a demyelinating neuropathy. One concerning finding here is that the patient seems to have some autonomic dysfunction, which also can be seen with an inflammatory demyelinating process, especially given that it could have started after his upper respiratory tract infection. We have ruled out a stroke or severe cervical spine disease. I recommend neuro checks every 4 hours. I also recommend PT to evaluate and treat. Please do a swallow evaluation. Order negative inspiratory force pressure to check the patient's respiratory function. TIME SPENT: I spent a total of 75 minutes of which more than 50% was spent obtaining history, examining the patient, evaluation and treatment, and discussing the treatment plan with the patient and the primary team. Education and counseling of the workup and what we are going to do from here on was discussed in detail with the patient. I also discussed the treatment plan with the admitting team. I will sign out to Dr. Montgomery first thing in the morning for him to check on the patient and see if he has any further recommendation or input. [id number]/CPS #: [id number] ADINA
--- NOTE | 2019-03-22 18:32 | CONS ---
CONSULTATION NOTE: DATE OF CONSULT: 03/22/19 HISTORY OF PRESENT ILLNESS: The patient is a very pleasant 68-year-old right- handed gentleman who is known to me from the past. The patient had a previous lumbar diskectomy for right footdrop. He recovered quite well with some residual numbness on his right toes. The patient recently developed recurrence of his back pain and right lower extremity radiculopathy. He had recurrent disk herniation based on the MRI known from October 2018. The patient clinically did very well and elected for conservative treatment. The patient came to our office on 03/20/19 complaining of approximately 2 weeks of difficulty with his sleep, difficulty with his back and pain in the right lower extremity, but more importantly with tremors in both upper extremities, with tremors on the right upper and right lower extremity and acute onset of numbness of the right fifth digit. The patient developed initially weakness of his right hand and for this reason, he was advised to come to the emergency room, where MRI of his brain and the cervical spine did not reveal any acute abnormalities. The patient was discharged home and followed by phone call. The patient had persistent complaints and mild increase in the numbness of his right upper extremity. The patient elected to monitor it at that time, but this morning he started experiencing worsening of the numbness of his right upper extremity, new numbness on the left upper extremity, and new numbness on the left anterolateral thigh. The patient was advised to come to the hospital as he did have positive Tinel's sign on the right antebrachium over the course of the ulnar nerve and suspicion of a possible hematoma in that area. The patient reports that he does not have any new weakness in his extremities, other than his chronic weakness of his right lower extremity. He reports that his weakness of his right hand has improved, but has more increased numbness in the right fifth digit and now extends to almost all digits as well as the medial aspect of his forearm and arm. The patient has similar distribution of numbness on the left upper extremity, although the symptoms are not as severe and he has also decreased sensation in the left anterior thigh and lateral thigh. The patient reports that he has difficulty with walking that started late last night and this morning with unsteadiness of gait. The patient denies any urinary or GI incontinence. 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 The patient denies any change in his dietary habits. He denies any recent travel outside the [place]. He denies any recent injury of his upper extremity or his cervical spine. He denies any loss of weight. He reports that there is no change in his dietary habits, but he reports that before his symptoms started he had an upper respiratory tract infection and possible UTI. PAST MEDICAL HISTORY: Asthma, history of arthritis. PAST SURGICAL HISTORY: Lumbar diskectomy and hernia repair. MEDICATIONS: There are no documented medications in the patient's chart. ALLERGIES: No known drug allergies. FAMILY HISTORY: Noncontributory. SOCIAL HISTORY: Tobacco: Negative. Alcohol: Rarely. Recreational drug use: Negative. PHYSICAL EXAM: The patient is not in any acute distress. He is awake, alert, and oriented x3. His pupils are equal and reactive. Cranial nerves II through XII are grossly intact. Motor 4-5/5 in all extremities. No pronator drift. The patient has normal strength in his rhomboids, serratus anterior, no winging of the scapula, deltoid, teres major, biceps, triceps, brachioradialis, intrinsics of hand, ulnar or radial carpi flexors and extensors, thumb adductor , dorsal and palmar interossei in both upper extremities. He has mild weakness in dorsiflexion of his right foot and EHL that is residual from the preoperative footdrop on the right lower extremity. Sensory: Grossly intact to light touch, except decreased sensation on the right upper extremity at the ulnar nerve distribution, medial aspect of his forearm and his arm with similar distribution on the left side, which is less intense in sensory loss. He does have decreased sensation in the left anterior thigh and the left lateral thigh. Deep tendon reflexes 1+ bilaterally in the upper extremities, trace in the lower extremities. No clonus. No Babinski's. Alexis's negative. Straight leg raise negative in the sitting position. His wound is soft, clean, and dry, healed very well. He ambulates with difficulty. He has a mild ataxic gait and Romberg's is positive. No dysmetria, but he does have difficulty standing on his toes and his heel on 1 foot. DIAGNOSTIC STUDIES: The patient had an MRI of the brain on 03/20/19 revealing no acute findings. No signs of CVA or hematomas. The patient had an MRI of the cervical spine revealing mild degenerative disk disease without evidence of significant stenosis. More specifically, there is no significant stenosis at C7, C8, or T1 foramina. ASSESSMENT: The patient is a very pleasant 68-year-old right-handed gentleman with history of asthma, with ataxic gait and evidence of polyneuropathy. PLAN: The patient at this point is quite worried about his balance and the progressive nature of his deficits. We discussed with Dr. Clay from neurology , who kindly evaluated the patient and believes that there might be a possibility of polyneuropathy or GBS. The patient will be admitted and be evaluated in the morning with EMG of his upper extremities. We will consider an MRI of his upper extremity on the right forearm from below his wrist to above his elbow to exclude any compression of the ulnar nerve or the median nerve. Case was discussed with Dr. Reddy when the patient came to our office and we will be happy to refer the patient to Dr. Reddy. The differential diagnosis includes compressive lesion of the peripheral nerves, based on the distribution of the numbness and his prior history, possible polyneuropathy, GBS or possible [place]-Alas syndrome could be also implicated in the patient's symptoms, although the lack of severe pain may make this possibility less likely. The distribution of his sensory deficits on the right upper extremity may indicate possible involvement of the medial cord or compression of the ulnar nerve below the elbow and potential involvement of the median nerve , although it is difficult to achieve an exact diagnosis at this point. The presence of sensory deficits and ataxia makes this possibility less likely also. We discussed in extent with the patient regarding his neurological findings and diagnostic findings. We will obtain a CT of the right upper extremity to exclude the remote possibility of a hematoma as well as obtain coagulation studies. The patient will be admitted for further evaluation. Thank you for allowing us to participate in the care of this patient. Please do not hesitate to contact our office in case you have any further questions or concerns regarding the care of this patient. [id number]/CPS #: [id number] [facility]
--- NOTE | 2019-03-22 20:26 | HP ---
CC: Dr. Kelsi Jacobs; Dr. Maria Eugenia Clay * ADMISSION HISTORY AND PHYSICAL: DATE OF ADMISSION: 03/22/19 PRIMARY CARE PROVIDER: Kelsi Jacobs MD. MY ATTENDING WHILE IN THE HOSPITAL: Debbie Stock DO.* (DICTATED BY AMRITA ESTRELLA) CONSULTING NEUROLOGIST: Maria Eugenia Clay MD. CHIEF COMPLAINT: Difficulty walking x1 day. HISTORY OF PRESENT ILLNESS: Mr. Soni is a 68-year-old male with past medical history significant only for asthma and lumbar spine herniation requiring surgery who presents to the emergency department after approximately 10 days ago he began to have pain in his legs, which he felt was similar to the pain that he had before his lumbar surgery. He had not noticed any weakness, except increase from his baseline at that point. His pain was better with standing up , worse with lying down. It was not radicular in nature and was associated with some numbness. The patient during that time went to [place], [place] for a large air show, spent 2- 1/2 hours in the plane, and denied any swelling in his legs. After this, the patient walked around essentially all day. Those days, he felt very well, but then had pain again when lying at home. The patient did not go into any long grass and had no tick bites at that time. The patient had approximately 1 month ago had an upper respiratory infection and slightly before that, was walking [place], and his granddaughter at that time was found to have a tick on her. He did not notice any tick bites or any rashes since then. The patient has no recent sick contacts or changes in his meds. The patient went to see his neurosurgeon, Dr. Doreen Burns, who ordered an MRI of his brain and cervical spine after he started developing numbness in his right arm on the fifth digit. The patient denies any fevers or chills, any difficulty swallowing, any changes in his vision, any nausea; vomiting; photophobia; nuchal rigidity; or dizziness. The patient after he had his MRI began to feel unsteady on his feet, but did not feel dizzy, did not feel like the room was spinning, and did not feel like he was going to pass out. The patient denied chest pain or shortness of breath with this. No difficulty breathing at all. The patient's symptoms from his upper respiratory infection had entirely resolved. At this point, the patient continued to have issues with leg pain that has not gotten better or worse. The patient does feel that he is generally weaker than he was previously. The patient was sent in to the emergency department by his neurosurgeon, Dr. Doreen Burns, for concern for his new ataxia. In the emergency department, the patient was seen in consultation by Dr. Maria Eugenia Clay of neurology, who noted that the patient was areflexic in his lower extremities and also had some difficulty with upward gaze as well as the above neurologic deficits. The patient described intermittent back pain, but nothing beyond what he normally feels, which he attributes to just getting older. Due to concern for new-onset ataxia and areflexia with other neurologic deficits, we were asked to evaluate the patient for admission to the hospital. PAST MEDICAL HISTORY: 1. Asthma. 2. Lumbar spinal disease. PAST SURGICAL HISTORY: 1. Lumbar spinal surgery. 2. Hernia repair in 2017. MEDICATIONS: 1. Multivitamin. 2. Albuterol inhaler. ALLERGIES: No known drug allergies. FAMILY HISTORY: The patient's father of heart failure and pneumonia at the age of 93. The patient's mother of heart failure, also in 90s. The patient's uncle had Parkinson disease. SOCIAL HISTORY: The patient never smoked or used illicit drugs. The patient drinks alcohol rarely. 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 The patient is not and has 1 adopted child, who is named Aretha Mulligan and will be his surrogate decision maker. REVIEW OF SYSTEMS: A 14-point review of systems was reviewed and is negative, except as stated above in the HPI. PHYSICAL EXAMINATION GENERAL: The patient is a 68-year-old male who appears his stated age, sitting comfortably in bed, in no acute distress. VITAL SIGNS: At the time of evaluation, temperature 97.1, pulse rate 87, respiratory rate 20, oxygen saturation 98% on room air, blood pressure 175/102. HEENT: Head: Normocephalic, atraumatic. Sclerae anicteric. No conjunctival injection. Nasal mucosa moist. Oral mucosa moist. No pharyngeal erythema, discharge, or exudate. NECK: Supple, nontender. No lymphadenopathy. No carotid bruits auscultated. No JVD. RESPIRATORY: Clear to auscultation bilaterally. No wheezes, rales, or rhonchi. Good air exchange bilaterally. CARDIAC: Regular rate and rhythm. No clicks, murmurs, gallops, or rubs. Pulses 2+ in the bilateral dorsalis pedis, posterior tibial and radial areas. ABDOMEN: Soft, nontender, nondistended. Bowel sounds present. Normoactive in all 4 quadrants. No hepatosplenomegaly. No abdominal bruits auscultated. No hepatojugular reflux. GENITOURINARY: No suprapubic or CVA tenderness. NEURO: Again is noted difficulty with upward gaze. Cranial nerves II through XII, otherwise, intact. Possible slight tremor noted in the bilateral upper extremities. Strength 4/5 in bilateral upper and lower extremities distally and proximally not asymmetrically, with strength disproportionate to the patient 's apparent health and muscle mass. Reflexes trace in the bilateral patellar areas, absent in bilateral Achilles areas. No clonus noted. PSYCHIATRIC: Pleasant and cooperative. SKIN: Clean, dry, intact. No rash. DIAGNOSTIC STUDIES/LAB DATA: Laboratory Data: White blood cell count 9.6, hemoglobin 16.1. INR 1.13. Sodium 137, potassium 4.1, chloride 100, carbon dioxide 29, anion gap 8, BUN 24, creatinine 1.97, glucose 122. Calcium 10.5. Bilirubin 0.8, AST 21, ALT 21, alkaline phosphatase 75. Total protein 7.6, albumin 4.4, globulin 3.2. B12 of 723. TSH 1.1. Studies: None. ASSESSMENT AND PLAN: Impression: Mr. Soni is a 68-year-old male with past medical history significant only for mild intermittent asthma and a recent history of upper respiratory infection who presents to the emergency department with new onset of ataxia with other scattered neurologic deficits and back pain. The patient will be admitted to the hospital for further evaluation with possible concern for Guillain-[place] syndrome. 1. Ataxia, muscle weakness, sensory abnormalities. The patient has been seen in consultation by Dr. Maria Eugenia Clay, who ordered numerous tests including SPEP, Lyme, RAFAEL, anti-Ro and anti-La, vitamin B1, vitamin E, vitamin B12, and a TSH. Vitamin B12 and TSH are normal to this point. All others are pending. Tick borne panel was also added on. The patient will have a lumbar puncture and MRI of his lumbar spine to assess for enhancement consistent with demyelinating or inflammatory neuropathy. The patient will likely have EMG tomorrow with Dr. Torito Montgomery. The patient will be monitored closely with neurologic checks to assess for worsening in his neurologic function and may require IVIG electrophoresis. Other interventions based on findings from above-stated evaluation. 2. Asthma. Continue the patient's home inhaler. 3. DVT prophylaxis. Lovenox subcu. 4. FEN. The patient will have a regular, unrestricted diet. Fluids are not indicated. TIME SPENT: Approximately 60 minutes were spent on the admission of this patient, 30 of which were spent [id number] with the patient obtaining history and physical and discussing treatment plan. This plan has been discussed with my attending, Dr. Debbie Stock; she is in agreement with the above. AMRITA ESTRELLA [id number]/[facility] #: [id number] MTDFito
[2019-03-23 07:04] LABS: ABS Lymphocytes 1.4 10^3/ul (1.0-4.8); ABS Monocytes 0.8 10^3/ul (0-0.8); ABS Neutrophils 7.7 10^3/ul (1.5-7.7); Eosinophil % 0.5 %; Hematocrit 46 % (42-52); Hemoglobin 15.9 g/dL (14.0-18.0); Lymphocyte % 14.5 %; Mean Corpuscular HGB Conc 35 g/dL (31-36); Mean Corpuscular Hemoglobin 32 pg (27-31); Mean Corpuscular Volume 92 fL (80-94); Platelet Count 269 10^3/uL (150-450); Red Blood Count 4.97 10^6 /uL (4.18-5.48); Red Cell Distribution Width 14 % (10-15)
[2019-03-23 07:22] LABS: BUN/Creatinine Ratio 30.2 (8-20); EGFR African American 107.3 (>60); EGFR Non-African American 88.7 (>60); Potassium 3.8 mmol/L (3.5-5.0)
--- NOTE | 2019-03-23 07:55 | PN ---
Subjective Date of Service: 03/23/19 Interval History: HD #2 03/23 Patient feels his numbness is going up to his bilateral arms. He still had numbness and tingling on bilateral legs, especially thighs. He was still able to control his urine and bowel movement. He had no fever or chills, no cough, no SOB, no abdominal pain/distension. Objective Active Medications: Acetaminophen (Tylenol Tab*) 650 mg PO Q6H PRN PRN Reason: FEVER/PAIN Albuterol (Ventolin Hfa Inhaler*) 2 puff INH Q4H PRN PRN Reason: SHORTNESS OF BREATH Ondansetron HCl (Zofran Inj*) 4 mg IV Q6H PRN PRN Reason: NAUSEA Oxycodone/Acetaminophen (Percocet 5/325 Tab*) 1 tab PO Q6H PRN PRN Reason: PAIN Vital Signs - 8 hr 03/23/19 03:21 Temperature 97.7 F Pulse Rate 78 Respiratory 18 Rate Blood Pressure 155/108 (mmHg) O2 Sat by Pulse 97 Oximetry Oxygen Devices in Use Now: None Exam: General: well, speaking in full sentence. Heart: S1 S2 Lung: clear Abd: soft, non tender Neurological alert, oriented x 3 POWER UL distal 4 4 UL proximal 5 5 LL distal 4+ 4+ LL proximal 4+ 4+ sensation light touch: decreased on bilateral thighs and left upper arm pin prick: decreased on bilateral thighs, and left upper arm proprioception: normal Result Diagrams: 03/23/19 06:23 03/23/19 06:23 Assess/Plan/Problems-Billing Assessment: Mr. Soni is 68 years old male with background of ashma, lumbar herniation s/p L4-5 discetomy, who presented with subacute onset of progressive weakness and numbness, ataxia for 10 days. His neurological examination is in a pattern of polyneuropathy. 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 However, infectious, autoimmune, cancerous causes are all in the list currently. Lumbar puncture will be needed as early as possible today. In view of multiple failed attempt in LP, we will get IR guided LP today. We will also need neurological consult and neurosurgical consult. - Patient Problems (1) Polyneuropathy Current Visit: Yes Status: Acute Code(s): G62.9 - POLYNEUROPATHY, UNSPECIFIED SNOMED Code(s): 19430720 Comment: causes unsure, infectious, tumorous, immune related, currently all in the list - IR guided LP today - MRI today - follow up with neuro and neurosurgical consult today Status and Disposition: Still inpatient medicine Attestation Documenting Resident: Mile Sena Supervising Physician: Mela Maharaj Attestation: This service has been performed in part by a resident under the direction of a teaching physician.I, Mela Maharaj, performed the service, or was physically present during the critical, or marmolejo portions of the service, furnished by the resident. I participated in the management of the patient.
[2019-03-23] MEDS ORDERED: amLODIPine TAB* 5 MG PO SCH (09:00)
[2019-03-23] MEDS ORDERED: IMMUNE GLOBULN IV SCH (11:00)
[2019-03-23 11:21] LABS: Body Fluid Source Cerebral Spinal
[2019-03-23 11:38] LABS: CSF Glucose 31 mg/dL (40-70)
[2019-03-23] MEDS ORDERED: Gadoteridol* (CONTRAST) 279.3 MG/ML 10 ML IV ONE (12:13)
[2019-03-23 12:47] LABS: Body Fluid Mono 7 %; Body Fluid Other Cells 25
--- NOTE | 2019-03-23 16:50 | CONS ---
NEUROLOGY CONSULTATION FOLLOWUP: DATE OF FOLLOWUP: 03/23/19 LOCATION: He is an inpatient in room 416. HOSPITALIST: Dr. Maharaj. RESIDENT: Dr. Sena. CHIEF COMPLAINT: Numbness and pain and weakness. INTERVAL HISTORY: Since yesterday, Mr. Soni continues to feel aching and pain in his legs and to a lesser extent in his arms. I went over the history in some detail with him. His symptoms started roughly 10 days ago. He noticed aching in his legs, which within a couple of days was aching in his arms. Over time, he noted some numbness in his hands and his left thigh. Initially, he noted difficulty emptying his bladder. He ultimately presented to the emergency department on 03/20/19 where he had an MRI scan of the brain without contrast, which was interpreted as normal. He had a noncontrasted MRI scan of the cervical spine interpreted as showing multilevel degenerative changes, but no spinal cord compression. There was disk extrusion at C3-4. I evaluated him initially this morning and again, today this afternoon at 3:30 p.m. In the morning, his examination was notable for loss of reflexes in the knees and ankles, loss of vibratory sense in the toes bilaterally; worse on the left, and absent pin discrimination in the left lateral thigh and in the medial aspect of the hand bilaterally. He had normal reflexes in the biceps and absent right triceps reflex. He had right triceps weakness in the grade 4 range , hip flexor weakness bilaterally; grade 4 on the right and grade 4- on the left. He had good distal strength. I initiated intravenous immunoglobulin by order this morning. He is receiving it this afternoon. He has had a number of laboratory studies since I initially saw him this morning. He had a spinal tap, which was quite abnormal with 308 white blood cells with 68 % lymphocytes, 7% monocytes, 25% plasma cells. Glucose is low at 31 and total protein is quite elevated at 505. His serum glucose this morning was 126. Spinal fluid Gram stain revealed no organisms seen in 4+ nucleated cells. No neutrophils were observed. He had nerve conduction studies of the upper and lower extremities today, which I reviewed and which were completely normal nerve conduction studies of the upper and lower extremities including F waves. I did limited EMG today and there was no evidence of recent or chronic denervation in the left leg or left arm. He had an MRI scan of the lumbar spine today with contrast, which revealed pial enhancement along the lower spinal cord and conus medullaris with prominence of the surface vasculature. There was no abnormal enhancement of the nerve roots. There was some degenerative disk disease. Also noted was a distention of the bladder. His CBC today remains normal. His chemistry profile this morning is notable for a BUN of 26 and a glucose of 126. Hemoglobin A1c yesterday was 6.0%. The rest of the chemistry profile from today is normal. Vitamin B12 level from yesterday was normal at 723 and TSH at 1.10. INTERVAL REVIEW OF SYSTEMS: Notable for difficulty initiating voiding. He was up a couple of times last night and could not urinate. He does not have any abdominal pain. He has no other new symptoms to report. MEDICATIONS: Reviewed: 1. He had started intravenous immunoglobulin just this afternoon. 2. He has oxycodone/acetaminophen 1 tablet every 6 hours as needed for pain. 3. Zofran 4 mg IV q.6 hours as needed for nausea. 4. Amlodipine 5 mg p.o. daily. 5. Albuterol inhaler 2 puffs as needed every 4 hours for shortness of breath. PHYSICAL EXAMINATION: He remains afebrile with most recent temperature of 96.8 , blood pressure continues to run somewhat high at most recently 167/98, heart rate is running in the 90s and is regular, respiratory rate is 16, and oxygen saturation is 97% on room air. Examination this morning was notable for normal heart tones. There were no cervical bruits. Lungs were clear. Skin is warm and dry. Neurological exam this morning was notable for normal pupils, funduscopic exam, and eye movements. Facial musculature is strong, as is facial sensation to light touch. Palate and tongue are normal and there is no dysarthria. Motor and sensory exam are listed in my initial history of present illness, as is the reflux exam. He is alert and oriented and is an excellent detailed historian. Memory is intact and language is fluent. He has adequate attention, concentration, and fund of knowledge. IMPRESSION AND PLAN: At this point, he appears to have an inflammatory spinal fluid rather than cytoalbuminologic dissociation as would be expected with an immune-mediated neuropathy. I have put in to stop this intravenous immunoglobulin and start IV doxycycline 100 mg q.12 hours. I have spoken with Dr. Maharaj and explained the results and my thinking to the patient. Recommend he be moved to telemetry as he had supraventricular bigeminy when he came into the hospital and he is persistently modestly hypertensive. I put in a call to Dr. Parks of pathology to discuss the significance of plasma cells in his spinal fluid. Dr. Maharaj is going to put in orders for serum protein electrophoresis, sedimentation rate, and C-reactive protein. If his Lyme testing comes in positive and consistent with recent infection, then he can be continued on doxycycline for 14 to 28 days. We should probably ask for an infectious disease consultation with Dr. Mejia if he is available as well. I will continue to follow him along with you. [id number]/[facility] #: [id number] MTDFito
[2019-03-23] MEDS: DOXYcycline IV* 100 MG in NS 0.9% 250 ML* 250 ML IVPB SCH (16:51)
--- NOTE | 2019-03-23 19:16 | PN ---
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 Labs largely unremarkable on admission though neuro work up has showed CSF pleocytosis with low gluocose, elevated protien and evidence of plasma cells. His serology for Lyme came back + for IgG and Syphillis also came back + for IGG. MRI Lumbar psine shows plial enhacmeent on the lower cord and conus MRI Brain and Cervical spine done prior to admission Differential remains concerning for lyme LOCKER ROOM ATTENDANT infection which could tie in pleocytosis and migratory radiculoneuritis though it is interesting that he has no signs of menigitis or encephlopathy with such dramatic CSF findings (Lyme enchephalomyelitis is exceedlingly rare), he could have neurosyphillis, or even CMV and studies are pending and he has no hx of immunsuprresion, finally plasma cells on CSF could broaden dx to oncologic process, also polyneuropathy in general has a broad dx including autoimmune and ischemic pathologies as well as and he also has autoimmune workup pending though this seems unlikely with CSF pleocytosis with low glucose as above. 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 above, coupled with CSF findings looking for acute infectious etiology to tie together, initially thought to be CIDP variant vs GBS though exam does not correlate, can not currently r/o malignancy at this time -Appreciate neuro recs -Awaiting EMG results -Follow cytometry -Currently tx for Lyme LOCK[employer] ROOM ATTENDANT on Doxy IV 100mg BID Day 1/__ on 03/23 -R/o Neurospyhliis, neuro CMV initial IGG positive, consult to ID -Screen for HIV and Hep C #Bladder retention:PVR and SC for >400, in setting of lumbar spine lesion seen on MRI, CTM #HTN: Started here, starting Amlodipine 5mg, increase to 10mg #DVT PPX: SQH #Full Code
[2019-03-23] MEDS ORDERED: Lisinopril TAB* 5 MG PO SCH (20:00)
[2019-03-23 20:29] LABS: Urine Appearance Clear; Urine Bacteria Absent (Absent); Urine Bilirubin Negative (Negative); Urine Blood Negative (Negative); Urine Color Yellow; Urine Glucose Negative (Negative); Urine Ketones Trace (Negative); Urine Nitrite Negative (Negative); Urine Protein Negative (Negative); Urine Red Blood Cell Trace(0-2/hpf) (Absent); Urine Specific Gravity 1.025 (1.010-1.030); Urine Urobilinogen Negative (Negative); Urine White Blood Cell Trace(0-5/hpf) (Absent)
[2019-03-23] MEDS: Heparin VIAL(*) 5000 UNITS/ML VIAL (FIVE THOUSAND) SUBCUT SCH (21:45)
[2019-03-23] MEDS: Melatonin 3 MG TAB PO SCH (21:45)
[2019-03-24] MEDS: DOXYcycline IV* 100 MG in NS 0.9% 250 ML* 250 ML IVPB SCH ×2 (02:41→15:46)
[2019-03-24] MEDS: Heparin VIAL(*) 5000 UNITS/ML VIAL (FIVE THOUSAND) SUBCUT SCH (06:25)
[2019-03-24] MEDS: amLODIPine TAB* 5 MG PO SCH (08:28)
[2019-03-24 08:50] LABS: RPR Nonreactive (Nonreactive)
--- NOTE | 2019-03-24 08:53 | PN ---
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 Labs largely unremarkable on admission though neuro work up has showed CSF pleocytosis Labs and Studies: Serology: Lyme came back + for IgG and Syphillis also came back + for IGG, though RPR was negative , HIV and Hep C neg CSF: Glu 51, Protein >500, WBC 308 (Lymphocyte predom), IGG elevated Autoimmune: SSB Neg, RAFAEL pending Heavy metals: Neg copper MRI Lumbar spine shows plial enhancement on the lower cord and conus MRI Brain and Cervical spine done prior to admission Differential remains concerning for lyme COUNTER POCKET TRIMMER infection which could tie in pleocytosis and migratory radiculoneuritis though it is interesting that he has no signs of meningitis or encephlopathy with such dramatic CSF findings (Lyme enchephalomyelitis/"[place]" is exceedlingly rare), he could have neurosyphillis (and with +IGG and NEG RPR he could have 1) prior tx Syphillis- he denies 2) Latent syphilis 3)false positive), or even CMV and studies are pending and he has no hx of immunsupresion, finally plasma cells on CSF could broaden dx to oncologic process, also polyneuropathy in general has a broad dx including autoimmune and ischemic pathologies as well as and he also has autoimmune workup pending though this seems unlikely with CSF pleocytosis with low glucose as above. 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 above, coupled with CSF findings looking for acute infectious etiology to tie together, initially thought to be CIDP variant vs GBS though exam does not correlate, can not currently r/o malignancy at this time -Appreciate neuro recs -Awaiting EMG results -Follow cytometry -Currently tx for Lyme [employer]TER POCKET TRIMMER on Doxy IV 100mg BID Day 2/__ on 03/24 -R/o Neurospyhl -Screen for HIV and Hep C #Bladder retention:PVR and SC for >400, now s/p levy cath, consider voiding trial if pts sx improve #HTN: Started here, starting Amlodipine 5mg, increase to 10mg, offer PRN hydralazine for SBVP > 170 #DVT PPX: SQH #Full Code
--- NOTE | 2019-03-24 09:53 | PN ---
<Mile Sena - Last Filed: 03/24/19 14:46> Subjective Date of Service: 03/24/19 Interval History: Overnight, pt had urinary retention with bladder scan 450ml, thus Pastor catheter was inserted. He started to have urinary symptoms since he had URI 2 weeks ago, he had no history of prostate disease or urinary difficulties before. Patient felt his numbness and weakness was not spreading. He had no headache, blurring vision, hearing difficulties. Objective Active Medications: Acetaminophen (Tylenol Tab*) 650 mg PO Q6H PRN PRN Reason: FEVER/PAIN Last Admin: 03/23/19 22:11 Dose: 650 mg Albuterol (Ventolin Hfa Inhaler*) 2 puff INH Q4H PRN PRN Reason: SHORTNESS OF BREATH Amlodipine Besylate (Norvasc Tab*) 10 mg PO DAILY [facility] Last Admin: 03/24/19 08:28 Dose: 10 mg Heparin Sodium (Porcine) (Heparin Vial(*)) 5,000 units SUBCUT Q8HR [facility] Last Admin: 03/24/19 06:25 Dose: 5,000 units Doxycycline Hyclate 100 mg/ (Sodium Chloride) 250 mls @ 250 mls/hr IVPB Q12H [facility] Last Admin: 03/24/19 02:41 Dose: 250 mls/hr Melatonin (Melatonin) 3 mg PO 2100 [facility] Last Admin: 03/23/19 21:45 Dose: 3 mg Ondansetron HCl (Zofran Inj*) 4 mg IV Q6H PRN PRN Reason: NAUSEA Oxycodone/Acetaminophen (Percocet 5/325 Tab*) 1 tab PO Q6H PRN PRN Reason: PAIN Vital Signs - 8 hr 03/24/19 03:15 Temperature 98.1 F Pulse Rate 85 Respiratory 22 Rate Blood Pressure 167/88 (mmHg) O2 Sat by Pulse 97 Oximetry Oxygen Devices in Use Now: None Exam: Pateint is well, alert. Heart: normal S1 and S2 Lung: clear Abdomen: soft non tender Lower limb: no swelling. Neurological Oriented x 3 Cranial nerve II-XII intact Muscle strength L R UL proximal 5 5 UL distal 4 4 LL proximal 4+ 4+ LL distal 4+ 4+ Sensation(light touch) decreased along interior aspects of bilateral forearms decreased along lateral aspects of bilateral thigh and lateral aspects of bilateral legs Reflexes: 2+ all over Finger to nose: dysmetria Romberg: positive Result Diagrams: 03/24/19 09:20 03/24/19 09:20 Assess/Plan/Problems-Billing Assessment: Mr. 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 We started iv doxycycline since 03/23/2019 and would wait other studies to come back at the meantime. - Patient Problems (1) Polyneuropathy Current Visit: Yes Status: Acute Code(s): G62.9 - POLYNEUROPATHY, UNSPECIFIED SNOMED Code(s): 12378323 Comment: - clinically mononeuritis mutiplex - etiology unsure now, infectious, tumorous, immune related, currently all in the list - Lumbar puncture 03/23/2019, WBC 308, Protein 505, plasmacytosis with abnormal morphology noted, pending csf flow cytometry, lyme antibody - MRI: pial enchancement along lower cord and conus - currently treating with iv doxycycline for lyme as serum lyme igG+, and clinical features fit lyme neuropathy, though this neuropathy and lyme igG+ could be two seperate issues from different etiology (2) Urinary retention Current Visit: Yes Status: Acute Code(s): R33.9 - RETENTION OF URINE, UNSPECIFIED SNOMED Code(s): 616351809 Comment: Pastor was inserted on 03/23/2019 due to urine retention urine clear, no signs of infection cause: immobilization vs neuropathy related start PT make sure daily bowel movement (3) Hypertension Current Visit: Yes Status: Acute Code(s): I10 - ESSENTIAL (PRIMARY) HYPERTENSION SNOMED Code(s): 53198324 Comment: Noted high BP during this adm Started amlodipine. Status and Disposition: Still inpatient medicine Counseling and/or Coordination of Care Minutes: Infectious Disease, Neurology Points of Discussion: Etiology of neuropathy Explanation of his CSF results and positive lyme. Attestation Documenting Resident: Mile Sena Supervising Physician: Mela Maharaj Attestation: This service has been performed in part by a resident under the direction of a teaching physician.I, Mela Maharaj, performed the service, or was physically present during the critical, or marmolejo portions of the service, furnished by the resident. I participated in the management of the patient. <Mela Maharaj - Last Filed: 03/24/19 17:08> Objective Active Medications: Acetaminophen (Tylenol Tab*) 650 mg PO Q6H PRN PRN Reason: FEVER/PAIN Last Admin: 03/23/19 22:11 Dose: 650 mg Albuterol (Ventolin Hfa Inhaler*) 2 puff INH Q4H PRN PRN Reason: SHORTNESS OF BREATH Amlodipine Besylate (Norvasc Tab*) 10 mg PO DAILY [facility] Last Admin: 03/24/19 08:28 Dose: 10 mg Docusate Sodium (Colace Cap*) 100 mg PO DAILY PRN PRN Reason: CONSTIPATION Enoxaparin Sodium (Lovenox(*)) 40 mg SUBCUT Q24H [facility] Last Admin: 03/24/19 11:02 Dose: 40 mg Doxycycline Hyclate 100 mg/ (Sodium Chloride) 250 mls @ 250 mls/hr IVPB Q12H [facility] Last Admin: 03/24/19 15:46 Dose: 250 mls/hr Melatonin (Melatonin) 3 mg PO 2100 [facility] Last Admin: 03/23/19 21:45 Dose: 3 mg Ondansetron HCl (Zofran Inj*) 4 mg IV Q6H PRN PRN Reason: NAUSEA Oxycodone/Acetaminophen (Percocet 5/325 Tab*) 1 tab PO Q6H PRN PRN Reason: PAIN Vital Signs - 8 hr 03/24/19 11:15 Temperature 98.7 F Pulse Rate 117 Respiratory 19 Rate Blood Pressure 144/86 (mmHg) O2 Sat by Pulse 97 Oximetry Result Diagrams: 03/24/19 09:20 03/24/19 09:20 Assess/Plan/Problems-Billing Assessment:
[2019-03-24 10:10] LABS: ABS Eosinophils 0.1 10^3/ul (0-0.6); ABS Lymphocytes 1.6 10^3/ul (1.0-4.8); ABS Monocytes 0.9 10^3/ul (0-0.8); ABS Neutrophils 9.4 10^3/ul (1.5-7.7); Eosinophil % 0.7 %; Hematocrit 44 % (42-52); Hemoglobin 15.1 g/dL (14.0-18.0); Lymphocyte % 13.4 %; Mean Corpuscular HGB Conc 35 g/dL (31-36); Mean Corpuscular Hemoglobin 31 pg (27-31); Mean Corpuscular Volume 91 fL (80-94); Mean Platelet Volume 7.9 fL (7.4-10.4); Platelet Count 277 10^3/uL (150-450); Red Blood Count 4.79 10^6 /uL (4.18-5.48); Red Cell Distribution Width 14 % (10-15); White Blood Count 12.1 10^3/uL (3.5-10.8)
[2019-03-24 10:27] LABS: BUN/Creatinine Ratio 30.9 (8-20); EGFR African American 140.7 (>60); EGFR Non-African American 116.3 (>60); Potassium 3.5 mmol/L (3.5-5.0)
[2019-03-24] MEDS: Enoxaparin(*) 40 MG/0.4 ML SYR SUBCUT SCH (11:02)
[2019-03-24 11:13] LABS: Hepatitis C Antibody Negative (Negative)
[2019-03-24 14:05] LABS: Anti SSA/RO Antibody <0.2 U
[2019-03-24 14:23] LABS: Copper Level 1.07 mcg/mL (0.75-1.45)
[2019-03-24 14:26] LABS: CSF IGG 77.5 mg/dL (<=8.1); CSF Immunoglobulin G Synthesis 254.9 mg/24 h (<=12)
--- NOTE | 2019-03-24 15:03 | CONS ---
CONSULTATION REPORT: DATE OF CONSULT: 03/24/19 REQUESTING PHYSICIAN: Dr. Maharaj. CONSULTING SERVICE: Infectious Disease. REASON FOR CONSULT: Lyme infection. IMPRESSION: 1. Recent flu-like illness and then about 10 days of radiating pain and weakness in the legs and arms with a component of numbness. CSF pleocytosis with decreased glucose, elevated protein. MRI showed pial enhancement in the lower cord and conus. His Lyme CAT is positive. 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 He had a positive syphilis IgG with a negative RPR. I do not think this represents neurosyphilis. 2. Positive syphilis IgG without a history of known syphilis or treated syphilis. With a negative RPR, this either represents past treated syphilis, past untreated syphilis, or a false positive. He has a positive treponemal test. We can repeat another treponemal test to evaluate for false positive IgG. RECOMMENDATIONS: We will continue doxycycline 100 mg IV twice daily, which he is tolerating well and starting to feel a bit better and he has had an FTA absorption test sent which is pending. I will follow up his Lyme Western blot as well. HISTORY OF PRESENT ILLNESS: This is a 68-year-old man who had a febrile illness with achiness, off and on cough about 2 to 3 weeks ago, had a course of amoxicillin that seemed to resolve, but subsequently developed radiating pain in his legs with sensation of weakness and then developed in his arms and then some numbness in his right arm, then the left arm. He did not have fever, chills, or sweats at that time. No headache or neck stiffness. Because of his symptoms, he came to the emergency room. MRI of the lumbar spine, the results as above. There was a concern initially for Guillain-[place]. His spinal fluid, however, came back with 300 white cells, glucose 31, protein 500. His Lyme antibody is positive, syphilis IgG is positive, HIV antibody negative. He does spend a fair amount of time outdoors where he lives in [place]. He has not travelled other than to [place] where he had spent some time in air show. Today, he has noted that he does not have anymore pain in any extremities. His previous weakness and gait difficulty seem better as well. He has some numbness in the arms though. He did have 400 cc postvoid residual and had a Pastor catheter placed overnight. PAST MEDICAL HISTORY: 1. Asthma. 2. Status post lumbar diskectomy in 2017. MEDICATIONS: 1. Tylenol. 2. Albuterol inhaler. 3. Amlodipine. 4. Docusate. 5. Doxycycline 100 mg IV twice daily. 6. Enoxaparin. 7. Melatonin. 8. Oxycodone as needed. ALLERGIES: No known drug allergies. FAMILY HISTORY: No recurrent infections. The patient's father from heart failure aged 93. Mother heart failure in her 90s. SOCIAL HISTORY: He lives in [place]. He has a pet rabbit. 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 REVIEW OF SYSTEMS: All negative except as noted above in 14-point review of systems. PHYSICAL EXAM: Vital Signs: Temperature 37, heart rate 85, respiratory rate 20 , blood pressure 170/88, oxygen saturation 97% on room air. In general, he is awake, not in distress. Neurologic: He is oriented x3. Follows all commands. Moves all his extremities. There is some weakness in the right great toe dorsiflexion. Sensation is intact to light touch in both lower extremities and arms and there is no lower extremity clonus bilaterally. Neck is supple without mass. HEENT: There is no conjunctival hemorrhage. Oropharynx without lesions. Heart is regular rate and rhythm without murmurs, rubs, or gallops. Lungs are clear to auscultation bilaterally. Abdomen: Soft, nontender, nondistended. There are bowel sounds present. Skin: There is no rash or splinter hemorrhage. Musculoskeletal: There is no spine tenderness to palpation or joint synovitis. LABORATORY DATA: White blood cell count 12, hemoglobin 15, platelets 277. Creatinine is 0.7. ALT is 21. Please see impressions and recommendations outlined above. [id number]/[facility] #: [id number] [facility]ITALFito
[2019-03-24 17:59] LABS: Albumin 3.9 g/dL (3.4-4.7); Albumin/Globulin Ratio 0.95; Gamma Globulin 1.5 g/dL (0.6-1.6)
[2019-03-24] MEDS ORDERED: LORazepam TAB(*) 0.5 MG PO ONE (19:16)
[2019-03-24] MEDS ORDERED: hydrALAZINE IV* 20 MG/ML VIAL IV SLOW PU PRN (19:17)
[2019-03-24] MEDS: Melatonin 3 MG TAB PO SCH (21:56)
[2019-03-25 01:04] LABS: Anaplasma phagocytophilium <1:64 titer (<1:64); Ehrlichia chaffeensis IgG AB <1:64 titer (<1:64); Lyme Disease Serology Positive (Negative)
[2019-03-25] MEDS: DOXYcycline IV* 100 MG in NS 0.9% 250 ML* 250 ML IVPB SCH ×2 (02:36→16:06)
[2019-03-25 06:43] LABS: BUN/Creatinine Ratio 26.5 (8-20); Calcium 9.7 mg/dL (8.6-10.3); EGFR African American 140.7 (>60); EGFR Non-African American 116.3 (>60); Potassium 3.8 mmol/L (3.5-5.0)
--- NOTE | 2019-03-25 07:27 | PN ---
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 Labs largely unremarkable on admission though neuro work up has showed CSF pleocytosis, ddx Lyme vs other ? autoimmune or oncologic process Labs and Studies: Serology: Lyme +, Western blot pending Syphillis also came back + for IGG, though RPR was negative , HIV and Hep C neg CSF: Glu 51, Protein >500, WBC 308 (Lymphocyte predom), IGG elevated Autoimmune: SSB Neg, RAFAEL pending Heavy metals: Neg copper MRI Lumbar spine shows plial enhancement on the lower cord and conus MRI Brain and Cervical spine done prior to admission #Lyme radiculoneuritis: Doxy 100 BID, may change to oral total of 28 days, day 4 of 28 on 03/25, may be stable for d/c if other testing comes back neg #Bladder retention and hematurai:PVR and SC for >400, now s/p levy cath, would consider voiding trial today -Has new hematuria, CTM, urine culture neg #HTN: Started here, starting Amlodipine 10mg and now Valsartan, offer PRN hydralazine for SBVP > 170 #DVT PPX: SQH #Full Code #Dispo: PMRU referral generated for ataxia
[2019-03-25] MEDS: Enoxaparin(*) 40 MG/0.4 ML SYR SUBCUT SCH (08:25)
[2019-03-25] MEDS: amLODIPine TAB* 5 MG PO SCH (08:25)
[2019-03-25] MEDS: Valsartan TAB* 40 MG PO SCH (08:25)
--- NOTE | 2019-03-25 09:12 | PN ---
Subjective Date of Service: 03/25/19 Interval History: Patient was sleepless last night, took melatonin and lorazepam, fell sleep and had nightmare, tried to get out of bed but then fell on the ground, no injury noticed, no pain currently related to his fall. He did feel more weak generally today, while numbness keeps the same. Noted his urine is dark brown looking since last night, oral intake reduced since admission. He had high BP, up to 170+ overnight, with brief episodes of sinus tachycardia in telemetry (HR 100-110), put him on two antihypertensives now. Objective Active Medications: Acetaminophen (Tylenol Tab*) 650 mg PO Q6H PRN PRN Reason: FEVER/PAIN Last Admin: 03/23/19 22:11 Dose: 650 mg Albuterol (Ventolin Hfa Inhaler*) 2 puff INH Q4H PRN PRN Reason: SHORTNESS OF BREATH Amlodipine Besylate (Norvasc Tab*) 10 mg PO DAILY [facility] Last Admin: 03/25/19 08:25 Dose: 10 mg Docusate Sodium (Colace Cap*) 100 mg PO DAILY PRN PRN Reason: CONSTIPATION Enoxaparin Sodium (Lovenox(*)) 40 mg SUBCUT Q24H [facility] Last Admin: 03/25/19 08:25 Dose: 40 mg Doxycycline Hyclate 100 mg/ (Sodium Chloride) 250 mls @ 250 mls/hr IVPB Q12H [facility] Last Admin: 03/25/19 02:36 Dose: 250 mls/hr Melatonin (Melatonin) 3 mg PO 2100 [facility] Last Admin: 03/24/19 21:56 Dose: 3 mg Oxycodone/Acetaminophen (Percocet 5/325 Tab*) 1 tab PO Q6H PRN PRN Reason: PAIN Valsartan (Diovan Tab*) 40 mg PO DAILY [facility] Last Admin: 03/25/19 08:25 Dose: 40 mg Vital Signs - 8 hr 03/25/19 03/25/19 03/25/19 02:36 03:15 07:15 Temperature 97.7 F 98.5 F Pulse Rate 85 91 Respiratory 20 21 20 Rate Blood Pressure 155/85 154/92 (mmHg) O2 Sat by Pulse 95 97 Oximetry 03/25/19 08:00 Temperature Pulse Rate Respiratory 20 Rate Blood Pressure (mmHg) O2 Sat by Pulse Oximetry Oxygen Devices in Use Now: None Exam: patient is well, not in distress Heart normal S1S2 Lung clear Abdomen: soft non tender LL: no swelling Dark brown urine bag noted Neurological Oriented x 3 Cranial nerve II-XII intact Muscle strength L R UL proximal 5 5 UL distal 4 4 LL proximal 3 3 LL distal 4+ 4+ Sensation(light touch) decreased along medial aspects of bilateral forearms decreased along lateral aspects of bilateral thigh and lateral aspects of bilateral legs Finger to nose: dysmetria Result Diagrams: 03/24/19 09:20 03/25/19 06:05 Assess/Plan/Problems-Billing Assessment: Mr. 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 Iv doxycycline was started since 03/23/2019 and planned for 28 days of abx in total. Other medical issues he had included acute urinary retention due to neuropathy vs immobilization, new hypertension which we started antihypertensive. At the meantime, he will start his slow [facility] rehab process, and referral to [facility] will be made. 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 - a/w other test incluidng flow cytometry, csf lyme,syphilis (2) Urinary retention Current Visit: Yes Status: Acute Code(s): R33.9 - RETENTION OF URINE, UNSPECIFIED SNOMED Code(s): 311783062 Comment: Pastor was inserted on 03/23/2019 due to urine retention urine clear, no signs of infection cause: immobilization vs neuropathy related start PT make sure daily bowel movement (3) Hypertension Current Visit: Yes Status: Acute Code(s): I10 - ESSENTIAL (PRIMARY) HYPERTENSION SNOMED Code(s): 91766774 Comment: newly noted high bp this adm stress and insomnia related likely started amlodipine and valsartan (4) Hematuria Current Visit: Yes Status: Acute Code(s): R31.9 - HEMATURIA, UNSPECIFIED SNOMED Code(s): 97836113 Comment: newly emerged since 03/24 no pyuria ?heprin related vs decompression related hematuria vs other etiology (5) DVT prophylaxis Current Visit: Yes Status: Acute Code(s): Z29.9 - ENCOUNTER FOR PROPHYLACTIC MEASURES, UNSPECIFIED SNOMED Code(s): 228021504 Comment: on levonox for prophylaxis (6) Full code status Current Visit: Yes Status: Acute Code(s): Z78.9 - OTHER SPECIFIED HEALTH STATUS SNOMED Code(s): 621635559 Status and Disposition: Still inpatient medicine Attestation Documenting Resident: Mile Sena Supervising Physician: Mela Maharaj Attestation: This service has been performed in part by a resident under the direction of a teaching physician.I, Mela Maharaj, performed the service, or was physically present during the critical, or marmolejo portions of the service, furnished by the resident. I participated in the management of the patient.
[2019-03-25 11:46] LABS: Urine Appearance Cloudy; Urine Bacteria Absent (Absent); Urine Bilirubin Negative (Negative); Urine Blood 3+ (Negative); Urine Color Yellow; Urine Glucose Negative (Negative); Urine Ketones Negative (Negative); Urine Nitrite Negative (Negative); Urine Protein Negative (Negative); Urine Red Blood Cell 3+(>10/hpf) (Absent); Urine Specific Gravity 1.008 (1.010-1.030); Urine Urobilinogen Negative (Negative); Urine White Blood Cell Trace(0-5/hpf) (Absent)
[2019-03-25 15:46] LABS: Vitamin E 18.8 mg/L (5.5 - 17.0)
[2019-03-25] MEDS ORDERED: hydrOXYzine HCL TAB* 10 MG PO PRN (16:16)
[2019-03-25 17:17] LABS: Kappa Free Light Chain 1.94 mg/dL; Lambda Free Light Chain 1.47 mg/dL
--- NOTE | 2019-03-25 18:32 | CONS ---
NEUROLOGY CONSULT FOLLOWUP: DATE OF FOLLOWUP: 03/25/19 HOSPITALIST: Dr. Maharaj. LOCATION: He is an inpatient in room 416. INTERVAL HISTORY: Since yesterday, Mr. Soni has much less pain. He occasionally gets a sharp pain, but nothing sustained anymore. He, however, has not noticed any improvement in his ability to ambulate. He feels very unsteady. He notes he has incoordination in his hands as well. He continues with some numbness in his legs and hands, but it is not painful anymore. MEDICATIONS: Reviewed and he is on: 1. Doxycycline 100 mg IV q.12 hours. 2. Colace 100 mg p.o. as needed for constipation. 3. Lovenox 40 mg subcutaneous daily. 4. Melatonin 3 mg p.o. at bedtime. 5. Valsartan 40 mg p.o. daily. PHYSICAL EXAMINATION: On examination, he is well nourished and well hydrated. Temperature 98.0, blood pressure most recently 132/77, heart rate most recently measured at 117, respiratory rate is 20, and oxygen saturation is 97% on room air. Neurologic Exam: The patient's musculature is strong. Eye movements are normal. Speech is clear without dysarthria. On motor exam, there are no alterations in muscle tone. He has normal strength in the upper extremities, except for grade 4 to 4- triceps weakness bilaterally , grade 4+ right wrist extensor weakness, grade 4 dorsal interossei weakness bilaterally. In the lower extremities, he has grade 3 hip flexor weakness bilaterally. He has normal distal strength. Reflexes are grade 1 at the biceps and brachioradialis bilaterally, absent at the triceps bilaterally, absent in the lower extremities. He is alert and oriented with an intact cognition. Memory is intact and language is fluent. DIAGNOSTIC STUDIES/LAB DATA: Laboratory data reveals negative hepatitis C antibody testing and negative HIV antibody testing. There are no new other serological reports. Chemistries today notable for sodium a bit low at 130. The rest of his chemistry profile is unremarkable. His glucose is 117, which is a bit down from yesterday. Serum protein electrophoresis came back and report shows no monoclonal gammopathy. CBC notable for a slight spike in his white blood cell count at 12.1. Sedimentation rate yesterday was 8. IMPRESSION AND PLAN: Impression is that of improved pain, but not improved weakness in a patient with presumptive Lyme polyradiculoneuropathy. He also has cerebellar ataxia, which appears to be much more than sensory ataxia alone. I should note I did some sensory testing and he has mild vibratory loss in the fingers and toes, but intact proprioception in the fingers and toes. There is no pseudoathetosis. Jwbiaz-ku-vnal maneuver is clearly dysmetric bilaterally and heel- to-fairchild maneuver is also dysmetric. I will need to do some research on whether or not Lyme can cause cerebellar ataxia. He does certainly seem to be improving in terms of pain. I will discuss the case with Dr. Maharaj and Dr. Mejia as well. For now, we will continue doxycycline. I will continue to follow him along. [id number]/[facility] #: [id number] [facility]
[2019-03-25 19:06] LABS: Urine Kappa/Lambda Light Chain >2.29
[2019-03-25] MEDS: Melatonin 3 MG TAB PO SCH (21:26)
[2019-03-26] MEDS: DOXYcycline IV* 100 MG in NS 0.9% 250 ML* 250 ML IVPB SCH ×2 (03:06→15:27)
--- NOTE | 2019-03-26 07:06 | PN ---
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 Labs largely unremarkable on admission though neuro work up has showed CSF pleocytosis, ddx Lyme vs other ? autoimmune or oncologic process Labs and Studies: Serology: Lyme +, Western blot + (assume, will call lab to perform), Syphillis also came back + for IGG, though RPR was negative , HIV and Hep C neg CSF: Glu 51, Protein >500, WBC 308 (Lymphocyte predom), IGG elevated Autoimmune: SSB Neg, RAFAEL pending Heavy metals: Neg copper MRI Lumbar spine shows plial enhancement on the lower cord and conus MRI Brain and Cervical spine done prior to admission Most unifying dx seems c/w Lyme. #Lyme radiculoneuritis: Doxy 100 BID, may change to oral total of 28 days, day 5 of 28 on 03/26 -Will call lab to confirm WB. #Bladder retention and hematuria: Still some e/o retention and small clots, traumatic? Posisbly all realte dot his lumbar inflamattion, will need outpatient urology followup for voiding trial #HTN: Started here, starting Amlodipine 10mg and now Valsartan, offer PRN hydralazine for SBVP > 170 #DVT PPX: SQH #Full Code #Dispo: PMRU referral generated for ataxia, if not accepted will attempt for home
[2019-03-26] MEDS: Valsartan TAB* 40 MG PO SCH (07:52)
[2019-03-26] MEDS: amLODIPine TAB* 5 MG PO SCH (07:53)
[2019-03-26] MEDS: Enoxaparin(*) 40 MG/0.4 ML SYR SUBCUT SCH (10:00)
--- NOTE | 2019-03-26 13:38 | CONS ---
CC: Dr. Mejia * NEUROLOGY FOLLOWUP CONSULTATION: DATE OF FOLLOWUP: 03/26/19 LOCATION: He is an inpatient, 416. HOSPITALIST: Dr. Maharaj CHIEF COMPLAINT: Weakness, numbness, pain. INTERVAL HISTORY: Since yesterday, Vasile Soni feels better. He does not have any pain. The numbness in his arms and legs is unchanged. He feels his walking is better. He is able to walk around the nursing unit with the physical therapist, although it was an effort. Incoordination of his hands he does not feel it was any better. He has no new symptoms to report. Medications are reviewed and he is on doxycycline 100 mg IV q.12 hours, Atarax 10 mg p.o. q.6 hours as needed for anxiety, valsartan 40 mg p.o. daily, Colace 100 mg p.o. daily, amlodipine 10 mg p.o. daily. On exam, he is well-nourished and well-hydrated. Temperature is 98.0, blood pressure 133/82, heart rate 90 and regular. Respiratory rate is 20 and oxygen saturation is 98% on room air. Neurological exam, facial musculature is symmetric. Speech is clear without dysarthria. He has normal strength in the upper extremities except for grade 4 triceps weakness bilaterally and grade 4 left wrist extensor weakness. In the lower extremities, he has grade 4 hip flexor weakness bilaterally. Finger-to- nose maneuver reveals significant dysmetria bilaterally. Finger taps are clumsy bilaterally. IMPRESSION: There is an improvement in his polyradiculopathy, but the ataxia is pretty persistent and atypical for lyme disease. He had an MRI scan of the brain, when he first came into the emergency room without contrast which is normal. Given the apparent cerebellar involvement, I would like to get a repeat MRI scan of the brain with contrast. Laboratory data is reviewed. His serology for lyme IgG and IgM was western blot came back positive for both. Spinal fluids studies for lyme are still pending. VDRL and spinal fluid is pending as well as a serum FTA-ABS. His flow cytometry and the plasma cells in the spinal fluid is also still pending. Serum protein electrophoresis revealed some light chains but not at elevate levels. 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 There is cross reactivity with syphilis testing, however, and CSF protein was very high and the cerebellar involvement is atypical for lyme and so I think we need to keep an open mind. I will await Dr. Mejia's followup. I will check the MRI of the brain with contrast because of the cerebellar involvement and explained my rationale to Mr. Soni and he is in agreement. I will continue to follow him along with you. [id number]/[facility] #: [id number] [facility]
[2019-03-26] MEDS ORDERED: Gadoteridol* (CONTRAST) 279.3 MG/ML 10 ML IV ONE (14:16)
--- NOTE | 2019-03-26 14:32 | PN ---
Subjective Date of Service: 03/26/19 Interval History: patient felt his unsteadiness is improving. But his weakness didn't improve much so far, right side more promimemt. Urine ba same as yeateday, blood. hEART normal S1.,S2, no murmur Lung clear Abdomen: soft tender calves supple. Objective Active Medications: Acetaminophen (Tylenol Tab*) 650 mg PO Q6H PRN PRN Reason: FEVER/PAIN Last Admin: 03/23/19 22:11 Dose: 650 mg Albuterol (Ventolin Hfa Inhaler*) 2 puff INH Q4H PRN PRN Reason: SHORTNESS OF BREATH Amlodipine Besylate (Norvasc Tab*) 10 mg PO DAILY [facility] Last Admin: 03/26/19 07:53 Dose: 10 mg Docusate Sodium (Colace Cap*) 100 mg PO DAILY PRN PRN Reason: CONSTIPATION Enoxaparin Sodium (Lovenox(*)) 40 mg SUBCUT Q24H [facility] Last Admin: 03/26/19 10:00 Dose: 40 mg Hydroxyzine HCl (Atarax Tab*) 10 mg PO Q6H PRN PRN Reason: ANXIETY Doxycycline Hyclate 100 mg/ (Sodium Chloride) 250 mls @ 250 mls/hr IVPB Q12H [facility] Last Admin: 03/26/19 03:06 Dose: 250 mls/hr Melatonin (Melatonin) 3 mg PO 2100 [facility] Last Admin: 03/25/19 21:26 Dose: 3 mg Oxycodone/Acetaminophen (Percocet 5/325 Tab*) 1 tab PO Q6H PRN PRN Reason: PAIN Valsartan (Diovan Tab*) 40 mg PO DAILY [facility] Last Admin: 03/26/19 07:52 Dose: 40 mg Vital Signs - 8 hr 03/26/19 03/26/19 03/26/19 07:46 08:00 12:06 Temperature 98.5 F 98.0 F Pulse Rate 86 109 Respiratory 16 16 20 Rate Blood Pressure 165/91 133/82 (mmHg) O2 Sat by Pulse 98 98 Oximetry Oxygen Devices in Use Now: None Result Diagrams: 03/24/19 09:20 03/25/19 06:05 Assess/Plan/Problems-Billing Assessment: Mr. 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 Iv doxycycline was started since 03/23/2019 and planned for 28 days of abx in total. Other medical issues he had included acute urinary retention due to neuropathy vs immobilization, new hypertension which we started antihypertensive. At the meantime, he will start his slow stream rehab process, and referral to [facility] will be made. 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 - a/w other test incluidng flow cytometry, csf lyme,syphilis (2) Urinary retention Current Visit: Yes Status: Acute Code(s): R33.9 - RETENTION OF URINE, UNSPECIFIED SNOMED Code(s): 247132740 Comment: Pastor was inserted on 03/23/2019 due to urine retention urine clear, no signs of infection etiogly decompression vs immobiliaion. (3) Hypertension Current Visit: Yes Status: Acute Code(s): I10 - ESSENTIAL (PRIMARY) HYPERTENSION SNOMED Code(s): 24823667 Comment: newly noted high bp this adm stress and insomnia related likely started amlodipine and valsartan (4) Hematuria Current Visit: Yes Status: Acute Code(s): R31.9 - HEMATURIA, UNSPECIFIED SNOMED Code(s): 96267847 Comment: newly emerged since 03/24 no pyuria ?heprin related vs decompression related hematuria vs other etiology (5) DVT prophylaxis Current Visit: Yes Status: Acute Code(s): Z29.9 - ENCOUNTER FOR PROPHYLACTIC MEASURES, UNSPECIFIED SNOMED Code(s): 606009234 Comment: on levonox for prophylaxis (6) Full code status Current Visit: Yes Status: Acute Code(s): Z78.9 - OTHER SPECIFIED HEALTH STATUS SNOMED Code(s): 376207590 Status and Disposition: Still inpatient medicine, strart look for rehab op op Attestation Documenting Resident: Mile Sena Supervising Physician: Mela Maharaj Attestation: This service has been performed in part by a resident under the direction of a teaching physician.I, Mela Maharaj, performed the service, or was physically present during the critical, or marmolejo portions of the service, furnished by the resident. I participated in the management of the patient.
[2019-03-26 17:23] LABS: T.Pallidum TP-PA Negative (Negative)
[2019-03-26] MEDS: Melatonin 3 MG TAB PO SCH (20:42)
[2019-03-27] MEDS: DOXYcycline IV* 100 MG in NS 0.9% 250 ML* 250 ML IVPB SCH ×2 (02:32→15:40)
[2019-03-27 06:30] LABS: ABS Eosinophils 0.3 10^3/ul (0-0.6); ABS Lymphocytes 1.4 10^3/ul (1.0-4.8); ABS Monocytes 1.3 10^3/ul (0-0.8); ABS Neutrophils 8.3 10^3/ul (1.5-7.7); Eosinophil % 2.5 %; Hematocrit 44 % (42-52); Hemoglobin 15.4 g/dL (14.0-18.0); Lymphocyte % 12.6 %; Mean Corpuscular HGB Conc 35 g/dL (31-36); Mean Corpuscular Hemoglobin 32 pg (27-31); Mean Corpuscular Volume 92 fL (80-94); Mean Platelet Volume 7.8 fL (7.4-10.4); Platelet Count 293 10^3/uL (150-450); Red Cell Distribution Width 14 % (10-15); White Blood Count 11.4 10^3/uL (3.5-10.8)
[2019-03-27 06:48] LABS: BUN/Creatinine Ratio 28.6 (8-20); Calcium 9.7 mg/dL (8.6-10.3); EGFR African American 121.9 (>60); EGFR Non-African American 100.8 (>60); Potassium 3.9 mmol/L (3.5-5.0)
--- NOTE | 2019-03-27 07:45 | PN ---
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 Labs largely unremarkable on admission though neuro work up has showed CSF pleocytosis, dx Lyme seems most likely Labs and Studies: Serology: Lyme +, Western blot + (assume, will call lab to perform), Syphillis also came back + for IGG, though RPR was negative , HIV and Hep C neg CSF: Glu 51, Protein >500, WBC 308 (Lymphocyte predom), IGG elevated Autoimmune: SSB Neg, RAFAEL pending Heavy metals: Neg copper MRI Lumbar spine shows plial enhancement on the lower cord and conus MRI Brain and Cervical spine done prior to admission Most unifying dx seems c/w Lyme. #Lyme radiculoneuritis: Doxy 100 BID, may change to oral total of 28 days, day 5 of 28 on 03/27 #Bladder retention and hematuria: Still some e/o retention and small clots, traumatic? Posisbly all realte dot his lumbar inflamattion, will need outpatient urology followup for voiding trial, consider as early as 2 weeks #HTN: Started here, starting Amlodipine 10mg and now Valsartan, offer PRN hydralazine for SBVP > 170 #DVT PPX: SQH #Full Code #Dispo: PMRU referral generated for ataxia, has support in home
[2019-03-27] MEDS: Valsartan TAB* 40 MG PO SCH (10:04)
[2019-03-27] MEDS: amLODIPine TAB* 5 MG PO SCH (10:05)
[2019-03-27] MEDS: Enoxaparin(*) 40 MG/0.4 ML SYR SUBCUT SCH (10:05)
--- NOTE | 2019-03-27 11:18 | PN ---
Progress Note - Progress Note Date of Service: 03/27/19 SOAP: Subjective: CC: Lyme infection HPI: Mr. Soni is a 68 yo male with PMH significant for asthma; who presented to the hospital with complaints of recent flu like illness with weakness and numbness. Denies fever, chills, nausea, vomiting, or diarrhea. He reports nausea yesterday that has resolved. Continues to have numbness in bilateral hands, and generalized weakness. Objective: Vital Signs 03/27/19 07:45 Temperature 97.8 F Temperature Oral Source Pulse Rate 100 Respiratory 16 Rate Blood Pressure 140/77 (mmHg) Blood Pressure 98 Mean O2 Sat by Pulse 99 Oximetry Patient on Room Yes Air Physical Exam: General: NAD, sitting up in a chair Neurological: Alert and Oriented x4 HEENT: Moist MM, no thrush Cardiovascular: Heart rate regular Respiratory: Lung sounds clear Abdominal: Bowel sounds present; ABD soft, non tender and non distended MSK: No tenderness with palpation of the neck, back or spine. 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 Skin: No rash Laboratory Results - last 24 hr 03/23/19 03/23/19 03/24/19 10:10 10:10 Unknown CSF VDRL Negative T.pallidum Ab (TP-PA) Negative Flow Intrp 2-8 Markers tnp Flow Intrp 9-15 Marker Flow Intrp 16+ Markers tnp 03/27/19 03/27/19 05:44 05:44 WBC 11.4 H RBC 4.80 Hgb 15.4 Hct 44 MCV 92 MCH 32 H MCHC 35 RDW 14 Plt Count 293 MPV 7.8 Neut % (Auto) 72.7 Lymph % (Auto) 12.6 Otoe % (Auto) 11.8 Eos % (Auto) 2.5 Baso % (Auto) 0.4 Absolute Neuts (auto) 8.3 H Absolute Lymphs (auto) 1.4 Absolute Monos (auto) 1.3 H Absolute Eos (auto) 0.3 Absolute Basos (auto) 0.0 Absolute Nucleated RBC 0.0 Nucleated RBC % 0.0 Sodium 134 L Potassium 3.9 Chloride 101 Carbon Dioxide 24 Anion Gap 9 BUN 22 Creatinine 0.77 Est GFR ( Amer) 121.9 Est GFR (Non-Af Amer) 100.8 BUN/Creatinine Ratio 28.6 H Glucose 110 H Calcium 9.7 Microbiology 03/23/19 10:10 CSF Gram Stain (Tube 3) - Final Cerebral Spinal Fluid CSF Culture - Final No Growth Day 4 03/25/19 10:55 Urine Culture - Final Urine No Growth (<1,000 CFU/mL) 03/23/19 20:00 Urine Culture - Final Urine No Growth (<1,000 CFU/mL) Assessment: 1. 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 Recent flu like illness with associated weakness and numbness. Serum Lyme IgG 6 bands present and IgM 3 bands positive. CSF fluid results pending at this time. Plan: Continue Doxycycline 100 mg PO BID for a total of 28 days, day 528. Followup with ID outpatient.
--- NOTE | 2019-03-27 14:25 | PN ---
Subjective Date of Service: 03/27/19 Interval History: Patient felt more steady today, though his weakness and numbness stays the same. He is happy to continue his rehabilitation in [facility]. Received phone call from pathologist who did flow cytometry for him, large amount of plasma cell, 30% are colonal and in K restricted pattern. Suggest for hem/onco consult Objective Active Medications: Acetaminophen (Tylenol Tab*) 650 mg PO Q6H PRN PRN Reason: FEVER/PAIN Last Admin: 03/23/19 22:11 Dose: 650 mg Albuterol (Ventolin Hfa Inhaler*) 2 puff INH Q4H PRN PRN Reason: SHORTNESS OF BREATH Amlodipine Besylate (Norvasc Tab*) 10 mg PO DAILY [facility] Last Admin: 03/27/19 10:05 Dose: 10 mg Docusate Sodium (Colace Cap*) 100 mg PO DAILY PRN PRN Reason: CONSTIPATION Enoxaparin Sodium (Lovenox(*)) 40 mg SUBCUT Q24H [facility] Last Admin: 03/27/19 10:05 Dose: 40 mg Hydroxyzine HCl (Atarax Tab*) 10 mg PO Q6H PRN PRN Reason: ANXIETY Doxycycline Hyclate 100 mg/ (Sodium Chloride) 250 mls @ 250 mls/hr IVPB Q12H [facility] Last Admin: 03/27/19 02:32 Dose: 250 mls/hr Melatonin (Melatonin) 3 mg PO 2100 [facility] Last Admin: 03/26/19 20:42 Dose: 3 mg Oxycodone/Acetaminophen (Percocet 5/325 Tab*) 1 tab PO Q6H PRN PRN Reason: PAIN Valsartan (Diovan Tab*) 40 mg PO DAILY [facility] Last Admin: 03/27/19 10:04 Dose: 40 mg Vital Signs - 8 hr 03/27/19 08:00 Respiratory 17 Rate Oxygen Devices in Use Now: None Exam: Well Heart normal S1S2 Lung clear Urine bag urine clear Calves supple Neurological Power 4 in distal upper limbs Power 3+ in proximal lower limbs Dysmetria, left more than right, improved from yesterday Romberg + Result Diagrams: 03/27/19 05:44 03/27/19 05:44 Assess/Plan/Problems-Billing Assessment: Mr. 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 Iv doxycycline was started since 03/23/2019 and planned for 28 days of abx in total. Other medical issues he had included acute urinary retention likely due to lyme disease causing inflammation in cornus, new hypertension which we started antihypertensive. 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 - a/w other test incluidng flow cytometry, csf lyme,syphilis (2) Urinary retention Current Visit: Yes Status: Acute Code(s): R33.9 - RETENTION OF URINE, UNSPECIFIED SNOMED Code(s): 163790254 Comment: Pastor was inserted on 03/23/2019 due to urine retention urine clear, no signs of infection etiogly decompression vs immobiliaion. (3) Hypertension Current Visit: Yes Status: Acute Code(s): I10 - ESSENTIAL (PRIMARY) HYPERTENSION SNOMED Code(s): 71580602 Comment: newly noted high bp this adm stress and insomnia related likely started amlodipine and valsartan (4) Hematuria Current Visit: Yes Status: Acute Code(s): R31.9 - HEMATURIA, UNSPECIFIED SNOMED Code(s): 90349177 Comment: newly emerged since 03/24 no pyuria probably decompression related hematuria (5) DVT prophylaxis Current Visit: Yes Status: Acute Code(s): Z29.9 - ENCOUNTER FOR PROPHYLACTIC MEASURES, UNSPECIFIED SNOMED Code(s): 995746492 Comment: on levonox for prophylaxis (6) Full code status Current Visit: Yes Status: Acute Code(s): Z78.9 - OTHER SPECIFIED HEALTH STATUS SNOMED Code(s): 732208919 Status and Disposition: Still inpatient medicine, transfer to [facility] once. Attestation Documenting Resident: Mile Sena Supervising Physician: Mela Maharaj Attestation: This service has been performed in part by a resident under the direction of a teaching physician.I, Mela Maharaj, performed the service, or was physically present during the critical, or marmolejo portions of the service, furnished by the resident. I participated in the management of the patient.
--- NOTE | 2019-03-27 16:02 | CONS ---
NEUROLOGY FOLLOWUP CONSULTATION: DATE OF FOLLOWUP: 03/27/19 LOCATION: He is an inpatient, 416. HOSPITALIST: Dr. Maharaj. CHIEF COMPLAINT: Weakness and numbness. INTERVAL HISTORY: Since yesterday, Mr. Soni notes a significant improvement. He feels his walking is better. He feels the numbness in his hands is not as bad. He feels the coordination in his hands is improved. MEDICATIONS: Reviewed and he remains on doxycycline 100 mg p.o. b.i.d., valsartan 40 mg p.o. daily, amlodipine 10 mg p.o. daily. PHYSICAL EXAMINATION: On examination, he is afebrile, blood pressure 140/77, heart rate most recently 100 and regular, respiratory rate is 16, and oxygen saturation is 99% on room air. Neurologic Exam: Facial musculature is symmetric. Speech is clear. On motor exam, he has bilateral triceps weakness, which is still about grade 3 on the left, but is improved to grade 4 to 4- on the right. Wrist extensor weakness is also improved to about grade 4+ on the right and left. Dorsal interossei have also improved to at least 4 to 4+ bilaterally. Hip flexors remain barely grade 3. DIAGNOSTIC STUDIES/LAB DATA: Laboratory data of interest is that his spinal fluid VDRL came back negative. Flow cytometry of his spinal fluid revealed a significant clonal population of plasma cells. Oncology is going to be consulted. His chemistries today are unremarkable. His sodium is up to 134. 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 His ataxia has also improved at least in his upper extremities and by report his gait. He is being evaluated for the plasma cells in the spinal fluid, which I suspect are reactionary to his central nervous system infection. He will be going to [facility] from here. He should remain on doxycycline for at least 14, if not 28 days. I will ask Dr. Turner, who is taking over the service this evening, to follow up on him over the weekend. His spinal fluid Lyme IgG index is still pending. [id number]/[facility] #: [id number] [facility]
[2019-03-27 16:13] LABS: Lyme CNS IgG Ab Index Interp Positive
[2019-03-27] MEDS: Melatonin 3 MG TAB PO SCH (21:12)
[2019-03-28] MEDS: DOXYcycline IV* 100 MG in NS 0.9% 250 ML* 250 ML IVPB SCH ×2 (03:46→15:26)
--- NOTE | 2019-03-28 07:31 | PN ---
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 Working on PMRU referral and insurance denied it, though has been appealed Heme was consulted in last 24 hours to comment on clonal cells in the CSF, likely all reactive This morning, he is doing well, still wiht a lot of weakness and difficulty with fine motor tasks, still dysmeteria. HTN improving, pain in back improving as well, residual sx is weakness and numbness of blt hands Objective Active Medications: Acetaminophen (Tylenol Tab*) 650 mg PO Q6H PRN PRN Reason: FEVER/PAIN Last Admin: 03/23/19 22:11 Dose: 650 mg Albuterol (Ventolin Hfa Inhaler*) 2 puff INH Q4H PRN PRN Reason: SHORTNESS OF BREATH Amlodipine Besylate (Norvasc Tab*) 10 mg PO DAILY [facility] Last Admin: 03/27/19 10:05 Dose: 10 mg Docusate Sodium (Colace Cap*) 100 mg PO DAILY PRN PRN Reason: CONSTIPATION Enoxaparin Sodium (Lovenox(*)) 40 mg SUBCUT Q24H [facility] Last Admin: 03/27/19 10:05 Dose: 40 mg Hydroxyzine HCl (Atarax Tab*) 10 mg PO Q6H PRN PRN Reason: ANXIETY Doxycycline Hyclate 100 mg/ (Sodium Chloride) 250 mls @ 250 mls/hr IVPB Q12H [facility] Last Admin: 03/28/19 03:46 Dose: 250 mls/hr Melatonin (Melatonin) 3 mg PO 2100 [facility] Last Admin: 03/27/19 21:12 Dose: 3 mg Oxycodone/Acetaminophen (Percocet 5/325 Tab*) 1 tab PO Q6H PRN PRN Reason: PAIN Valsartan (Diovan Tab*) 40 mg PO DAILY [facility] Last Admin: 03/27/19 10:04 Dose: 40 mg Vital Signs - 8 hr 03/28/19 03:37 Temperature 97.9 F Pulse Rate 88 Respiratory 20 Rate Blood Pressure 156/88 (mmHg) O2 Sat by Pulse 95 Oximetry Oxygen Devices in Use Now: None Appearance: V pleasant man in nad Eyes: No Scleral Icterus Ears/Nose/Mouth/Throat: NL Teeth, Lips, Gums Neck: NL Appearance and Movements; NL JVP Respiratory: Symmetrical Chest Expansion and Respiratory Effort, Clear to Auscultation Cardiovascular: NL Sounds; No Murmurs; No JVD, RRR Abdominal: NL Sounds; No Tenderness; No Distention, No Hepatosplenomegaly Lymphatic: No Cervical Adenopathy Extremities: No Edema Skin: No Rash or Ulcers Neurological: Alert and Oriented x 3, - - abnormal finger to nose, 4/5 proximal muscle weakness in LE, dimisned snesation in blt feet Result Diagrams: 03/27/19 05:44 03/27/19 05:44 Microbiology and Other Data: Microbiology 03/23/19 10:10 CSF Gram Stain (Tube 3) - Final Cerebral Spinal Fluid CSF Culture - Final No Growth Day 4 03/25/19 10:55 Urine Culture - Final Urine No Growth (<1,000 CFU/mL) 03/23/19 20:00 Urine Culture - Final Urine No Growth (<1,000 CFU/mL) Assess/Plan/Problems-Billing Assessment: 68 M only sig PMH lumbar radiculopathy with R foot drop s/p discectomy, asthma who presented with subacute lower back pain, polyneuropathy (migratory), and new ataxia with CSF pleocytosis, unifying dx of Lyme radiculoneuritis has been made. Hospital stay c/b HTN and urinary retention. - Patient Problems (1) Lyme neuropathy Current Visit: Yes Status: Acute Code(s): A69.22 - OTHER NEUROLOGIC DISORDERS IN LYME DISEASE SNOMED Code(s): 298210057 Comment: - Currently working diagnosis with CSF Lyme +, and Serum Lyme Ab and Western Blot + - Doxy 100 BID Day 02/20 on 03/28 - Sig neuropathy still affecting gait, currently still showing sings of needing rehabilitation (2) Ataxia Current Visit: Yes Status: Acute Code(s): R27.0 - ATAXIA, UNSPECIFIED SNOMED Code(s): 25353681 Comment: - Likely all a part of lyme presentation - There is some question is CSF plasmacytosis with clonal cells is 2/2 to any other ? oncologic process, and heme has been asked to consult and feel it is all reactive (3) Hypertension Current Visit: Yes Status: Acute Code(s): I10 - ESSENTIAL (PRIMARY) HYPERTENSION SNOMED Code(s): 46884159 Comment: - New dx this admission - Hold today, may improve as tx for lyme progresses (4) Urinary retention Current Visit: Yes Status: Acute Code(s): R33.9 - RETENTION OF URINE, UNSPECIFIED SNOMED Code(s): 599794315 Comment: - Pastor was inserted on 03/23/2019 due to urine retention, he failed in house voiding trial - Etiology likely 2/2 to conus inflammation seen on MRI, also immobilization and decompression (5) DVT prophylaxis Current Visit: Yes Status: Acute Code(s): Z29.9 - ENCOUNTER FOR PROPHYLACTIC MEASURES, UNSPECIFIED SNOMED Code(s): 242426677 Comment: on levonox for prophylaxis (6) Full code status Current Visit: Yes Status: Acute Code(s): Z78.9 - OTHER SPECIFIED HEALTH STATUS SNOMED Code(s): 938018750 Status and Disposition: Still qualifying for acute rehab needs
[2019-03-28] MEDS: Enoxaparin(*) 40 MG/0.4 ML SYR SUBCUT SCH (10:08)
[2019-03-28] MEDS: Valsartan TAB* 40 MG PO SCH (11:26)
[2019-03-28] MEDS: amLODIPine TAB* 5 MG PO SCH (11:26)
[2019-03-28] MEDS: Melatonin 3 MG TAB PO SCH (20:57)
--- NOTE | 2019-03-28 23:09 | CONS ---
MEDICAL ONCOLOGY/HEMATOLOGY CONSULTATION NOTE: DATE OF CONSULT: 03/28/19 REASON FOR CONSULTATION: Monoclonal plasma cells in cerebrospinal fluid. HISTORY OF PRESENT ILLNESS: Mr. Soni is a 68-year-old patient with a history of underlying degenerative disk disease in the spine. He had had a right footdrop following decompressive surgery in 2017, but otherwise no significant neurologic issues. The patient had an upper respiratory infection approximately 1 month prior to admission, treated with amoxicillin. Over the 1 to 2 weeks prior to admission, he developed some bizarre neurologic complaints including numbness in his right hand and then later in the forearm. He also noticed numbness in the left anterior thigh. Significant pain in the extremities, especially on lying down. He was sent to the emergency room after office visit with Dr. Burns with question of cervical spine pathology. MRI scans were obtained of the brain, cervical spine, and lumbar spine during this admission without any major findings. Lumbar puncture revealed central nervous system Lyme disease. It is felt that his symptoms are due to polyradiculoneuropathy by Neurology. His symptoms are improving in terms of both the upper extremity and in terms of his gait regarding the lower extremity. He has been on doxycycline and will remain on it for the near future. This consultation was precipitated by laboratory findings, which showed CSF to contain 68% lymphocytes, 7% monocytes, and 25% plasma cells with a total count of 308 white cells/L. Red cells were 9/L. CSF glucose was 31, total protein of 505. Flow cytometry was performed via CSF and revealed that most of the plasma cells were polyclonal. There was a small kappa restricted clonal component of 17% of the plasma cell population. Given these numbers as part of his workup, he has also now had free light chains obtained with a normal kappa light chain of 1.94 in the upper limit of normal and 1.47 and a normal ratio of 1.32. Serum protein electrophoresis does not reveal a significant M-spike. IMPRESSION: A 68-year-old male, now diagnosed with CROWN IRONER OPERATOR Lyme. As part of the workup, he was found to have 25% plasma cells out of the 308 cells. This is in the setting of having other cells including 68% lymphocytes and 7% monocytes. Plasma cells in the CSF are most commonly a reaction to either inflammation or infection. The fact that most of the plasma cells were not clonal suggests that this would be the case. It would be highly unusual to have plasma cells in the CSF for two different reasons, both from myeloma and from reaction. One can sometimes get small collections of monoclonal cells that are not malignant. I have looked at the MRI scan of the brain, cervical spine, and lumbar spine, which covers a fair amount of the area that one would evaluate, looking for lytic lesions from myeloma. There certainly are no lesions seen. He does not have any renal failure, hypercalcemia, and he is not anemic. I have told the patient today that it would be extremely unlikely that he has multiple myeloma involving the CSF with only a small clone and other plasma cells that are polyclonal are present in the setting. This setting includes having normal CBC, normal renal function, normal calcium, normal serum protein electrophoresis, no significant free light chains, and bones without lytic lesions in the skull and spine region. While one can never 100% rule out a myeloma diagnosis, I have told the patient that given this constellation of findings, I believe the likelihood that he has myeloma to be less than 1% at the present time. He is satisfied with this and does not wish to do a further workup nor do I think that a further workup to include bone marrow biopsy or full look at the bones with either MRIs of the whole body or PET scan are warranted. Counseling session: Over 50% of the time spent on counseling. TIME SPENT: Total time 30 minutes. [id number]/[facility] #: [id number] [facility]
[2019-03-29] MEDS: DOXYcycline IV* 100 MG in NS 0.9% 250 ML* 250 ML IVPB SCH ×2 (03:42→15:17)
[2019-03-29] MEDS: amLODIPine TAB* 5 MG PO SCH (07:52)
[2019-03-29] MEDS: Enoxaparin(*) 40 MG/0.4 ML SYR SUBCUT SCH (08:01)
--- NOTE | 2019-03-29 10:03 | PN ---
<Mile Sena - Last Filed: 03/29/19 12:44> Subjective Date of Service: 03/29/19 Interval History: No overnight events noted. Noted Oncologist's recommendation. Vital signs sBP ranging from 113-139mmhg overnight. Patient feels stronger in terms of strength, able to transfer from chair to bed with one hand assistance. Prepared for PMRU transfer tomorrow as we get insurance approval. Objective Active Medications: Acetaminophen (Tylenol Tab*) 650 mg PO Q6H PRN PRN Reason: FEVER/PAIN Last Admin: 03/23/19 22:11 Dose: 650 mg Albuterol (Ventolin Hfa Inhaler*) 2 puff INH Q4H PRN PRN Reason: SHORTNESS OF BREATH Amlodipine Besylate (Norvasc Tab*) 10 mg PO DAILY [facility] Last Admin: 03/29/19 07:52 Dose: 10 mg Docusate Sodium (Colace Cap*) 100 mg PO DAILY PRN PRN Reason: CONSTIPATION Enoxaparin Sodium (Lovenox(*)) 40 mg SUBCUT Q24H [facility] Last Admin: 03/29/19 08:01 Dose: 40 mg Hydroxyzine HCl (Atarax Tab*) 10 mg PO Q6H PRN PRN Reason: ANXIETY Doxycycline Hyclate 100 mg/ (Sodium Chloride) 250 mls @ 250 mls/hr IVPB Q12H [facility] Last Admin: 03/29/19 03:42 Dose: 250 mls/hr Melatonin (Melatonin) 3 mg PO 2100 [facility] Last Admin: 03/28/19 20:57 Dose: 3 mg Oxycodone/Acetaminophen (Percocet 5/325 Tab*) 1 tab PO Q6H PRN PRN Reason: PAIN Vital Signs - 8 hr 03/29/19 03/29/19 03/29/19 02:56 07:15 07:57 Temperature 97.1 F 97.3 F Pulse Rate 87 83 Respiratory 19 24 20 Rate Blood Pressure 113/81 139/73 (mmHg) O2 Sat by Pulse 98 99 Oximetry Oxygen Devices in Use Now: None Exam: Well, not in distress Heart normal S1S2 Lung clear Abdomen soft non tender Urine bag clear urine seen. 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 Hospital stay c/b HTN and urinary retention. - Patient Problems (1) Polyneuropathy Current Visit: Yes Status: Acute Code(s): G62.9 - POLYNEUROPATHY, UNSPECIFIED SNOMED Code(s): 18811638 Comment: - clinically mononeuritis mutiplex, etiology lyme neuropathy - Lumbar puncture 03/23/2019, WBC 308, Protein 505, plasmacytosis with abnormal morphology noted, pending csf flow cytometry, lyme antibody - MRI: pial enchancement along lower cord and conus - On Iv doxycycline, plan for 28 days in total. - a/w other test incluidng flow cytometry, csf lyme,syphilis (2) Urinary retention Current Visit: Yes Status: Acute Code(s): R33.9 - RETENTION OF URINE, UNSPECIFIED SNOMED Code(s): 979940481 Comment: - Pastor was inserted on 03/23/2019 due to urine retention, he failed in house voiding trial - Etiology likely 2/2 to conus inflammation seen on MRI, also immobilization and decompression (3) Hypertension Current Visit: Yes Status: Acute Code(s): I10 - ESSENTIAL (PRIMARY) HYPERTENSION SNOMED Code(s): 78787406 Comment: - New dx this admission - continue monitor, may improve with lyme treatment (4) Hematuria Current Visit: Yes Status: Acute Code(s): R31.9 - HEMATURIA, UNSPECIFIED SNOMED Code(s): 67874797 Comment: newly emerged since 03/24 no pyuria probably decompression related hematuria (5) DVT prophylaxis Current Visit: Yes Status: Acute Code(s): Z29.9 - ENCOUNTER FOR PROPHYLACTIC MEASURES, UNSPECIFIED SNOMED Code(s): 050737353 Comment: on levonox for prophylaxis (6) Full code status Current Visit: Yes Status: Acute Code(s): Z78.9 - OTHER SPECIFIED HEALTH STATUS SNOMED Code(s): 672972913 Status and Disposition: Still qualifying for acute rehab needs Attestation Documenting Resident: Mile Sena Supervising Physician: Mela Maharaj Attestation: This service has been performed in part by a resident under the direction of a teaching physician.I, Mela Maharaj, performed the service, or was physically present during the critical, or marmolejo portions of the service, furnished by the resident. I participated in the management of the patient. <Mela Maharaj - Last Filed: 03/29/19 18:33> Objective Active Medications: Acetaminophen (Tylenol Tab*) 650 mg PO Q6H PRN PRN Reason: FEVER/PAIN Last Admin: 03/23/19 22:11 Dose: 650 mg Albuterol (Ventolin Hfa Inhaler*) 2 puff INH Q4H PRN PRN Reason: SHORTNESS OF BREATH Amlodipine Besylate (Norvasc Tab*) 10 mg PO DAILY [facility] Last Admin: 03/29/19 07:52 Dose: 10 mg Docusate Sodium (Colace Cap*) 100 mg PO DAILY PRN PRN Reason: CONSTIPATION Enoxaparin Sodium (Lovenox(*)) 40 mg SUBCUT Q24H [facility] Last Admin: 03/29/19 08:01 Dose: 40 mg Hydroxyzine HCl (Atarax Tab*) 10 mg PO Q6H PRN PRN Reason: ANXIETY Doxycycline Hyclate 100 mg/ (Sodium Chloride) 250 mls @ 250 mls/hr IVPB Q12H [facility] Last Admin: 03/29/19 15:17 Dose: 250 mls/hr Melatonin (Melatonin) 3 mg PO 2100 [facility] Last Admin: 03/28/19 20:57 Dose: 3 mg Vital Signs - 8 hr 03/29/19 03/29/19 11:00 15:00 Temperature 98.3 F 98.2 F Pulse Rate 88 96 Respiratory 16 22 Rate Blood Pressure 119/73 134/75 (mmHg) O2 Sat by Pulse 97 98 Oximetry Result Diagrams: 03/27/19 05:44 03/27/19 05:44 Assess/Plan/Problems-Billing Assessment: - Patient Problems (1) Lyme neuropathy Current Visit: Yes Status: Acute Code(s): A69.22 - OTHER NEUROLOGIC DISORDERS IN LYME DISEASE SNOMED Code(s): 530070940 Comment: - Currently working diagnosis with CSF Lyme +, and Serum Lyme Ab and Western Blot + - Doxy 100 BID Day 02/20 on 03/28 - Sig neuropathy still affecting gait, currently still showing sings of needing rehabilitation (2) Ataxia Current Visit: Yes Status: Acute Code(s): R27.0 - ATAXIA, UNSPECIFIED SNOMED Code(s): 37442449 Comment: - Likely all a part of lyme presentation - There is some question is CSF plasmacytosis with clonal cells is 2/2 to any other ? oncologic process, and heme has been asked to consult and feel it is all reactive (3) Hypertension Current Visit: Yes Status: Acute Code(s): I10 - ESSENTIAL (PRIMARY) HYPERTENSION SNOMED Code(s): 56576429 Comment: - New dx this admission - continue monitor, may improve with lyme treatment (4) Urinary retention Current Visit: Yes Status: Acute Code(s): R33.9 - RETENTION OF URINE, UNSPECIFIED SNOMED Code(s): 555357259 Comment: - Pastor was inserted on 03/23/2019 due to urine retention, he failed in house voiding trial - Etiology likely 2/2 to conus inflammation seen on MRI, also immobilization and decompression (5) DVT prophylaxis Current Visit: Yes Status: Acute Code(s): Z29.9 - ENCOUNTER FOR PROPHYLACTIC MEASURES, UNSPECIFIED SNOMED Code(s): 822690829 Comment: on levonox for prophylaxis (6) Full code status Current Visit: Yes Status: Acute Code(s): Z78.9 - OTHER SPECIFIED HEALTH STATUS SNOMED Code(s): 554552772
--- NOTE | 2019-03-29 16:28 | DS ---
Resident Discharge Summary Discharge Summary: Date of Admission: 03/22/19 Date of Discharge: Admitting MD: Debbie Stock DO Attending MD: Mela Maharaj MD Primary Care Physician: Kelsi Jacobs MD Home Medications Medication Instructions Recorded Confirmed Type Multiple Vitamins W/ Minerals 1 tab PO QAM 10/04/15 03/22/19 History [Centrum] Albuterol HFA INHALER* [Ventolin 2 puff INH Q4H PRN 07/26/17 03/22/19 History HFA Inhaler*] Nutritional Supplements 2 tab PO QAM 07/26/17 03/22/19 History [Glucosamine Complex] Disposition: PMRU Condition: Stable Primary Diagnosis: 1. Lyme Neuropathy 2. 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 Hypertension Secondary Diagnosis: 1. Asthma 2. 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 Hernia repair in 2006 Diagnostic Imaging: MRI lumbar spine: 1. THERE IS PIAL ENHANCEMENT ALONG THE LOWER CORD AND CONUS WITH PROMINENCE OF THE SURFACE VASCULATURE, WITHOUT ABNORMAL ENHANCEMENT OF THE NERVE ROOTS. THE DIFFERENTIAL INCLUDES VENOUS HYPERTENSION IN THE SETTING OF THE DURAL ARTERIOVENOUS FISTULA. 2. DEGENERATIVE DISC DISEASE AND OSTEOARTHRITIS. 3. THERE IS NEURAL FORAMINAL NARROWING NOTED ABOVE. THERE IS NO SIGNIFICANT CENTRAL CANAL STENOSIS. 4. THERE IS DISTENTION OF THE BLADDER WITH MILD TRABECULATION WHICH CAN BE SEEN IN THE SETTING OF A NEUROGENIC BLADDER OR CHRONIC BLADDER OUTLET OBSTRUCTION. MRI brain: no obvious enhancement. CSF Cytology: plasma cells, lymphocytes, macrophages seen. The differential diagnosis includes plasma cell dyscrasia versus other inflammatory/infectious etiologies. Hospital Course: HISTORY OF PRESENT ILLNESS: The patient is a pleasant 68-year-old right- handed gentleman who has past medical hisotry of only asthma and lumbar diskectomy in Jul, 2017, presented to ED for progressive back pain, numbness on RUE, and bilateral LE for 2 weeks duration. He went to ED and Ortho office earlier, MRI spine of his brain and cervical spine revealed no abnormality. His pain worsened with new numbness on LUE and left anterolateral thigh therefore he presented to ED again this time.The patient also reported difficulty with walking and unsteadiness of gait which just started on the day of admission.He had upper respiratory infection about 1 month ago, and history of walking in the wood 1.5 months ago where her daughter was found to have a tick on her. On physical examinagtion, he was found to be areflexia on lower extremity, sensory ataxia,and sensory abnormality in the distribution of the right ulnar nerve and lateral cutaneous femoral nerve. 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 Lumbar puncture was attempted in ED but failed, workup including vitamin, octaviano , tsh, SPEP, lyme,autoimmune. ESR, CRP was sent to rule out metabolic, inflammatory or autoimmune causes of his neurological disturbances. Disease course by problems during this admission, 1. Lyme Neuropathy In view of his rapidly progressive sensory and motor symptoms, acute demyelinating disease like Guilian Ballie Syndrome was top on the differential list. Intravenous IgG was initiated while other investigation were carried out same time.EMG/NCS study revealed no evidence of polyneuropathy; MRI lumbar spine showed pial enhancement along the lower cord and conus with prominence of the surface vasculature, without abnormal enhancement of nerve roots. Lumbar puncture was performed under IR guidance on D2, revealing pleocytosis picture with CSF WBC 308, RBC 9, lymphocyte 68%, plasma cell 25%, glucose 31, total protein 505, albumin 235, Ig G index 1.27. Of note, there is plasmacytosis in CSF, and abnormal morphology was found under microscopy. His lyme total antibody was back positive on the same day. IV doxycycline treatment was started for potential lyme neuropathy after consulting infectious disease specialist and neurologist. GBS was ruled out based on the lumbar puncture, but differential diagnosis for this mononeuritis multiplex expanded, including autoimmune, infective and cancerous etiology. The diagnosis of lyme neuropathy was not endorsed until his lyme IgG/IgM serology, IgG/IgM Ab western blot results, CSF IgG Ab index all came back positive. Other workup in order to differentiate the etiology of his polyneuropathy includes: syphilis which was false positive on IgG antibody but confirmed negative with TP-PA, anaplasmosis, babesia Ab, HepB/HepC/HIV, SPEP/UPEP, RAFAEL,SS-A all neg. A concern for plasma cell disorder was raised due to significant amount of dysplastic plasma cells noticed in CSF, which was confirmed under microscopy and flow cytometry(around 30%); thus Hem/Onco was consulted. After discussion with infection disease, neurology, Oncology/Hematology, a unified diagnosis of lyme neuropathy was confirmed, a complete course of 28 days was decided. 2. Urinary Retention His stay also complicated by urinary retention found on D3 admission. Levy catheter was inserted. The cause of his urinary retention is likely due to his lyme neuropathy involving conus which was confirmed in MRI spine, other contributing factor include immobilization. Attempt to trial off catheter was made however failed. Decision was made together with patient to keep the catheter and trial off when abx treatment completed. 3. Hypertension Patient was also found to be hypertensive this admission, which could be due to lyme disease, also could be due to stress and anxiety patient experienced during hospitalization. Antihypertensive agent was added, and we are able to wean down to single agent amlodipine on the day of discharge. On the day of discharge, Patient is stable, able to transfer himself from chair to bed. Discussed with patient regarding his discharge to [facility], patient was happy for rehab there while continuing doxycycline treatment. Medication change on dicharge include, doxycycline p.o. 100mg BID for total 28 days for lyme neuropathy, amlodipine p.o.10mg daily for new hypertension. Medication changes were discussed with patient as well. Followup with infection disease Dr. Mejia after completing abx will be needed, patient was also informed to make appointment with [facility] urology to trial off catheter after discharging from rehab. Apointment with primary care to check neurological recovery and followup will also be needed. Follow Up Instructions: Rehab in [facility] Continue oral doxycycline, to complete by Apr 20 for total 28 days. Make appointment with [facility] Urologist [phone] after discharge from [facility], to trial off levy catheter Follow up with Infectious Disease Dr. Mejia for lyme neuropathy treatment Follow up with primary care physician In case of an emergency or after clinic hours, please go to your nearest Emergency Department. You may also call the [facility] crabbing machine operator at .
--- NOTE | 2019-03-29 18:12 | PN ---
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 Labs largely unremarkable on admission though neuro work up has showed CSF pleocytosis, dx Lyme seems most likely Labs and Studies: Serology: Lyme +, Western blot + (assume, will call lab to perform), Syphillis also came back + for IGG, though RPR was negative , HIV and Hep C neg CSF: Glu 51, Protein >500, WBC 308 (Lymphocyte predom), IGG elevated Autoimmune: SSB Neg, RAFAEL pending Heavy metals: Neg copper MRI Lumbar spine shows plial enhancement on the lower cord and conus MRI Brain and Cervical spine done prior to admission Most unifying dx seems c/w Lyme. #Lyme radiculoneuritis: Doxy 100 BID, may change to oral total of 28 days, day 7 of 28 on 03/27 #Bladder retention and hematuria: Still some e/o retention and small clots, traumatic? Posisbly all realte dot his lumbar inflamattion, will need outpatient urology followup for voiding trial, consider as early as 2 weeks #HTN: Started here, starting Amlodipine 10mg and now Valsartan, offer PRN hydralazine for SBVP > 170 #DVT PPX: SQH #Full Code #Dispo: PMRU referral generated for ataxia, has support in home
[2019-03-29] MEDS ORDERED: DOXYcycline CAP(*) 100 MG PO SCH (21:00)
[2019-03-29] MEDS: Melatonin 3 MG TAB PO SCH (21:25)
--- NOTE | 2019-03-30 06:56 | PN ---
<Mile Sena - Last Filed: 03/30/19 11:47> Subjective Date of Service: 03/30/19 Interval History: Overnight, pt had heart rate dipping down to 40-50s during sleep in telemetry, no symptoms related. No new lab done this morning. Pt is well, feeling stronger. Pt requests to stop antihypertensive and watch bp since he was not hypertensive before this admission, and he is improving currently. Noted no ALLI 3 days despite colace. Objective Active Medications: Acetaminophen (Tylenol Tab*) 650 mg PO Q6H PRN PRN Reason: FEVER/PAIN Last Admin: 03/23/19 22:11 Dose: 650 mg Albuterol (Ventolin Hfa Inhaler*) 2 puff INH Q4H PRN PRN Reason: SHORTNESS OF BREATH Amlodipine Besylate (Norvasc Tab*) 10 mg PO DAILY [facility] Last Admin: 03/29/19 07:52 Dose: 10 mg Docusate Sodium (Colace Cap*) 100 mg PO DAILY PRN PRN Reason: CONSTIPATION Doxycycline Hyclate (Vibramycin Cap(*)) 100 mg PO Q12HR [facility] Enoxaparin Sodium (Lovenox(*)) 40 mg SUBCUT Q24H [facility] Last Admin: 03/29/19 08:01 Dose: 40 mg Hydroxyzine HCl (Atarax Tab*) 10 mg PO Q6H PRN PRN Reason: ANXIETY Melatonin (Melatonin) 3 mg PO 2100 [facility] Last Admin: 03/29/19 21:25 Dose: 3 mg Vital Signs - 8 hr 03/30/19 03/30/19 00:00 03:40 Temperature 97.6 F 97.5 F Pulse Rate 80 79 Respiratory 18 20 Rate Blood Pressure 136/76 139/79 (mmHg) O2 Sat by Pulse 98 97 Oximetry Oxygen Devices in Use Now: None Exam: Well, sitting comfortably on the chair, Heart: normal S1S2 Lung: clear Abdomen: soft non tender LL: no swelling. Result Diagrams: 03/27/19 05:44 03/27/19 05:44 Microbiology and Other Data: Microbiology 03/23/19 10:10 CSF Gram Stain (Tube 3) - Final Cerebral Spinal Fluid CSF Culture - Final No Growth Day 4 03/25/19 10:55 Urine Culture - Final Urine No Growth (<1,000 CFU/mL) 03/23/19 20:00 Urine Culture - Final Urine No Growth (<1,000 CFU/mL) Assess/Plan/Problems-Billing Assessment: 68 y/o male with minimal past medical history presented with progressive numbness and weakness, a unified diagnosis of lyme neuropathy was reached. He will be transferred to [facility] for further rehab. - Patient Problems (1) Polyneuropathy Current Visit: Yes Status: Acute Code(s): G62.9 - POLYNEUROPATHY, UNSPECIFIED SNOMED Code(s): 31594593 Comment: - clinically mononeuritis mutiplex, unifying diagnosis of lyme neuropathy - Lumbar puncture 03/23/2019, WBC 308, Protein 505, plasmacytosis with abnormal morphology noted; serum lyme antiboby and csf lyme antibody all positive - MRI: pial enchancement along lower cord and conus - On doxycycline, plan for 28 days in total. - for discharge to [facility] today if they approve formally - a/w other test incluidng flow cytometry, csf lyme,syphilis (2) Urinary retention Current Visit: Yes Status: Acute Code(s): R33.9 - RETENTION OF URINE, UNSPECIFIED SNOMED Code(s): 497862587 Comment: - Pastor was inserted on 03/23/2019 due to urine retention, he failed in house voiding trial - Etiology likely 2/2 to conus inflammation seen on MRI, also immobilization and decompression (3) Hypertension Current Visit: Yes Status: Acute Code(s): I10 - ESSENTIAL (PRIMARY) HYPERTENSION SNOMED Code(s): 95279135 Comment: - New dx this admission - continue monitor, may improve with lyme treatment (4) Hematuria Current Visit: Yes Status: Acute Code(s): R31.9 - HEMATURIA, UNSPECIFIED SNOMED Code(s): 92958697 Comment: newly emerged since 03/24 no pyuria probably decompression related hematuria (5) DVT prophylaxis Current Visit: Yes Status: Acute Code(s): Z29.9 - ENCOUNTER FOR PROPHYLACTIC MEASURES, UNSPECIFIED SNOMED Code(s): 699683028 Comment: on levonox for prophylaxis (6) Full code status Current Visit: Yes Status: Acute Code(s): Z78.9 - OTHER SPECIFIED HEALTH STATUS SNOMED Code(s): 041515521 Status and Disposition: Still qualifying for acute rehab needs Attestation Documenting Resident: Mile Sena Supervising Physician: Thu Wells Attestation: This service has been performed in part by a resident under the direction of a teaching physician.I, Thu Wells, performed the service, or was physically present during the critical, or marmolejo portions of the service, furnished by the resident. I participated in the management of the patient. <Thu Wells - Last Filed: 03/30/19 12:45> Objective Active Medications: Acetaminophen (Tylenol Tab*) 650 mg PO Q6H PRN PRN Reason: FEVER/PAIN Last Admin: 03/23/19 22:11 Dose: 650 mg Albuterol (Ventolin Hfa Inhaler*) 2 puff INH Q4H PRN PRN Reason: SHORTNESS OF BREATH Docusate Sodium (Colace Cap*) 100 mg PO DAILY PRN PRN Reason: CONSTIPATION Last Admin: 03/30/19 11:17 Dose: 100 mg Doxycycline Hyclate (Vibramycin Cap(*)) 100 mg PO Q12HR [facility] Last Admin: 03/30/19 09:27 Dose: 100 mg Enoxaparin Sodium (Lovenox(*)) 40 mg SUBCUT Q24H [facility] Last Admin: 03/30/19 09:27 Dose: 40 mg Vital Signs - 8 hr 03/30/19 03/30/19 03/30/19 07:00 08:00 11:12 Temperature 97.4 F 97.1 F Pulse Rate 89 105 Respiratory 16 17 16 Rate Blood Pressure 127/80 121/73 (mmHg) O2 Sat by Pulse 100 99 Oximetry Result Diagrams: 03/27/19 05:44 03/27/19 05:44 Assess/Plan/Problems-Billing Assessment:
[2019-03-30] MEDS: DOXYcycline CAP(*) 100 MG PO SCH ×2 (09:27→20:21)
[2019-03-30] MEDS: Enoxaparin(*) 40 MG/0.4 ML SYR SUBCUT SCH (09:27)
[2019-03-30] MEDS: amLODIPine TAB* 5 MG PO SCH (09:28)
[2019-03-30] MEDS: Docusate CAP* 100 MG PO PRN (11:17)
[2019-03-30] MEDS ORDERED: Bisacodyl SUPP* 10 MG SUPP PR ONE (11:22)
[2019-03-30] MEDS: Senna TAB 8.6 mg* TAB PO PRN (20:21)
[2019-03-31] MEDS: DOXYcycline CAP(*) 100 MG PO SCH (09:57)
[2019-03-31] MEDS: Enoxaparin(*) 40 MG/0.4 ML SYR SUBCUT SCH (09:57)
[2019-03-31] MEDS: Docusate CAP* 100 MG PO PRN (10:42)
[2019-03-31] MEDS: Senna TAB 8.6 mg* TAB PO PRN (10:42)
[2019-03-31 10:52] LABS: Albumin 36 %; Albumin/Globulin Ratio 0.57; Gamma Globulin 12 %; Total Protein Concentration 20 mg/dL; Total Protein(PEP) Urine 520 mg/24 h (<229)
--- NOTE | 2019-03-31 14:31 | PN ---
<Mile Sena - Last Filed: 03/31/19 14:20> Subjective Date of Service: 03/31/19 Interval History: Overnight, no issues. Noted pt is rejected by [facility], and will go home instead with walker and urine bag Objective Active Medications: Acetaminophen (Tylenol Tab*) 650 mg PO Q6H PRN PRN Reason: FEVER/PAIN Last Admin: 03/23/19 22:11 Dose: 650 mg Albuterol (Ventolin Hfa Inhaler*) 2 puff INH Q4H PRN PRN Reason: SHORTNESS OF BREATH Docusate Sodium (Colace Cap*) 100 mg PO DAILY PRN PRN Reason: CONSTIPATION Last Admin: 03/31/19 10:42 Dose: 100 mg Doxycycline Hyclate (Vibramycin Cap(*)) 100 mg PO Q12HR [facility] Last Admin: 03/31/19 09:57 Dose: 100 mg Enoxaparin Sodium (Lovenox(*)) 40 mg SUBCUT Q24H [facility] Last Admin: 03/31/19 09:57 Dose: 40 mg Senna (Senokot 8.6 Mg Tab*) 1 tab PO DAILY PRN PRN Reason: CONSTIPATION Last Admin: 03/31/19 10:42 Dose: 1 tab Vital Signs - 8 hr 03/31/19 03/31/19 07:00 08:00 Temperature 97.9 F Pulse Rate 78 Respiratory 16 16 Rate Blood Pressure 124/80 (mmHg) O2 Sat by Pulse 97 Oximetry Oxygen Devices in Use Now: None Exam: Well Heart normal S1S2 Lung clear Abdomen soft, non tender alert, oriented x4 dysmetria still present romberg+ Power bilateral leg proximal 4+ Result Diagrams: 03/27/19 05:44 03/27/19 05:44 Microbiology and Other Data: Microbiology 03/23/19 10:10 CSF Gram Stain (Tube 3) - Final Cerebral Spinal Fluid CSF Culture - Final No Growth Day 4 03/25/19 10:55 Urine Culture - Final Urine No Growth (<1,000 CFU/mL) 03/23/19 20:00 Urine Culture - Final Urine No Growth (<1,000 CFU/mL) Assess/Plan/Problems-Billing Assessment: This is a 68 year old man admitted 03/22 with ataxia and was found to have positive lyme serology in the [facility] and has improved on doxycycline. Neurology and ID have been following. - Patient Problems (1) Polyneuropathy Current Visit: Yes Status: Acute Code(s): G62.9 - POLYNEUROPATHY, UNSPECIFIED SNOMED Code(s): 58783227 Comment: - clinically mononeuritis mutiplex, unifying diagnosis of lyme neuropathy - Lumbar puncture 03/23/2019, WBC 308, Protein 505, plasmacytosis with abnormal morphology noted; serum lyme antiboby and csf lyme antibody all positive - MRI: pial enchancement along lower cord and conus - On doxycycline, plan for 28 days in total. - for discharge to [facility] today if they approve formally - a/w other test incluidng flow cytometry, csf lyme,syphilis (2) Urinary retention Current Visit: Yes Status: Acute Code(s): R33.9 - RETENTION OF URINE, UNSPECIFIED SNOMED Code(s): 552716118 Comment: - Pastor was inserted on 03/23/2019 due to urine retention, he failed in house voiding trial - Etiology likely 2/2 to conus inflammation seen on MRI, also immobilization and decompression (3) Hypertension Current Visit: Yes Status: Acute Code(s): I10 - ESSENTIAL (PRIMARY) HYPERTENSION SNOMED Code(s): 56201623 Comment: - New dx this admission - continue monitor, may improve with lyme treatment (4) Hematuria Current Visit: Yes Status: Acute Code(s): R31.9 - HEMATURIA, UNSPECIFIED SNOMED Code(s): 63966954 Comment: newly emerged since 03/24 no pyuria probably decompression related hematuria (5) DVT prophylaxis Current Visit: Yes Status: Acute Code(s): Z29.9 - ENCOUNTER FOR PROPHYLACTIC MEASURES, UNSPECIFIED SNOMED Code(s): 655471334 Comment: on levonox for prophylaxis (6) Full code status Current Visit: Yes Status: Acute Code(s): Z78.9 - OTHER SPECIFIED HEALTH STATUS SNOMED Code(s): 321676024 Status and Disposition: Still qualifying for acute rehab needs, awaiting insurance authorization <Thu Wells - Last Filed: 03/31/19 16:37> Objective Active Medications: Acetaminophen (Tylenol Tab*) 650 mg PO Q6H PRN PRN Reason: FEVER/PAIN Last Admin: 03/23/19 22:11 Dose: 650 mg Albuterol (Ventolin Hfa Inhaler*) 2 puff INH Q4H PRN PRN Reason: SHORTNESS OF BREATH Docusate Sodium (Colace Cap*) 100 mg PO DAILY PRN PRN Reason: CONSTIPATION Last Admin: 03/31/19 10:42 Dose: 100 mg Doxycycline Hyclate (Vibramycin Cap(*)) 100 mg PO Q12HR [facility] Last Admin: 03/31/19 09:57 Dose: 100 mg Enoxaparin Sodium (Lovenox(*)) 40 mg SUBCUT Q24H [facility] Last Admin: 03/31/19 09:57 Dose: 40 mg Senna (Senokot 8.6 Mg Tab*) 1 tab PO DAILY PRN PRN Reason: CONSTIPATION Last Admin: 03/31/19 10:42 Dose: 1 tab Vital Signs - 8 hr 03/31/19 03/31/19 11:00 15:00 Temperature 98.5 F 97.6 F Pulse Rate 98 91 Respiratory 16 16 Rate Blood Pressure 137/80 129/73 (mmHg) O2 Sat by Pulse 97 98 Oximetry Result Diagrams: 03/27/19 05:44 03/27/19 05:44 Assess/Plan/Problems-Billing Assessment: Attestation Documenting Resident: Nathen Supervising Physician: Priscilla Attending/Supervising Physician Comment: Mr. Soni's insurance denied him from acute rehab despite peer to peer appeal. He will go to his son's house from here, and then to his own house. Home care is being arranged by case management. He walked the hallways with me with his walker and was steady, comfortable, and felt safe. I have arranged follow up appointments with Dr. Montgomery and Dr. Chi, and the urology office will call him tomorrow with an appointment. Doxycycline has been sent to his pharmacy. Please see the discharge summary by Dr. Sena--the only change from this summary is his disposition since he was declined from short term rehab. Attestation: This service has been performed in part by a resident under the direction of a teaching physician.IPriscilla, performed the service, or was physically present during the critical, or marmolejo portions of the service, furnished by the resident. I participated in the management of the patient.
[2019-03-31 16:11] VITALS: BP 129/73
== END 2019-03-31 18:30 | disposition home health service (06) | DRG 868 ==
LOC: ED 11:08 → MED 14:47
PROVIDERS: ADMIT Hospitalist; ATTEND Internal Medicine
PROC: 00JU3ZZ Inspection of Spinal Canal, Percutaneous Approach (ICD-10-PCS; principal; 2019-03-22)
PROC: 009U3ZX Drainage of Spinal Canal, Percutaneous Approach, Diagnostic (ICD-10-PCS; 2019-03-23)
DX: A69.22 Other neurologic disorders in Lyme disease (principal); G11.9 Hereditary ataxia, unspecified; G62.9 Polyneuropathy, unspecified; I10 Essential (primary) hypertension; R33.9 Retention of urine, unspecified; D72.822 Plasmacytosis; R31.9 Hematuria, unspecified; J45.909 Unspecified asthma, uncomplicated; M51.16 Intervertebral disc disorders with radiculopathy, lumbar region; M47.9 Spondylosis, unspecified; M21.371 Foot drop, right foot; W06.XXXA Fall from bed, initial encounter; Y92.230 Patient room in hospital as the place of occurrence of the external cause; Z79.51 Long term (current) use of inhaled steroids; Z79.899 Other long term (current) drug therapy; Z82.49 Family history of ischemic heart disease and other diseases of the circulatory system; Z82.3 Family history of stroke
CPT/HCPCS: 36415; 62270; 70552; 72158; 80048; 80053; 81003; 81015; 82040; 82042; 82525; 82607; 82784; 82945; 83036; 83735; 83883; 84155; 84156; 84157; 84165; 84166; 84425; 84443; 84446; 85025; 85610; 85652; 86038; 86235; 86592; 86617; 86618; 86666; 86753; 86780; 86803; 87070; 87086; 87205; 87389; 88112; 88184; 88185; 88187; 88188; 88189; 89051; 95885; 95913; 99284; A9270-GY; A9579; G8978-GP-CJ; G8979-GP-CH; J0360; J1459; J1644; J1650